=== PATIENT | male | born 1950 | race Caucasian/White ===

== ENCOUNTER 2020-12-25 23:48 | Inpatient (IN) | payer MEDICARE ==
[~2020-12-25] VITALS: Ht 185.4 cm; Wt 79.9 kg
[2020-12-25 23:45] VITALS: BP 87/56
[2020-12-26] VITALS (27 sets, daily range): BP systolic 79–114; BP diastolic 50–74
[2020-12-26] MEDS ORDERED: HEPARIN for IV BOLUS 10,000 UNIT/10 ML VIAL. IV PRN (00:15)
[2020-12-26] MEDS ORDERED: NOREPINEPHRINE VIAL 8 MG in IV DEXTROSE 5% 250 ML IV PRN (00:15)
[2020-12-26 00:56] LABS: BASO # 0.1 x10^3/uL (0.0-0.2); BASO % 0 % (0-3); EOS % 0 % (0-3); HEMATOCRIT 29.4 % (39.0-53.0); HEMOGLOBIN 9.2 g/dL (13.0-17.5); LYMPH # 2.1 x10^3/uL (1.0-4.8); LYMPH % 12 % (24-48); MEAN CORPUSCULAR HEMOGLOBIN 25 pg (25-35); MEAN CORPUSCULAR HGB CONC 31 g/dL (31-37); MEAN CORPUSCULAR VOLUME 80 fL (79-100); MONO # 1.9 x10^3/uL (0.0-1.1); MONO % 10 % (0-9); NEUT # 14.4 x10^3/uL (1.8-7.7); NEUT % 78 % (31-73); PLATELET COUNT 250 x10^3/uL (140-400); RED BLOOD COUNT 3.69 x10^6/uL (4.30-5.70); WHITE BLOOD COUNT 18.5 x10^3/uL (4.0-11.0)
--- NOTE | 2020-12-26 01:00 | NUR ---
Admit to room 116 from [facility]. Report received from GRAHAM Lehman. Patient arrived via EMS. Moved from cot to bed. Heparin infusing 2.2 mls/hr and levophed at 16mls/hr (1600mcg/250mls). Started at [place]. Heparin titrated with PTT. Continued dosages until current labs and will continue according to protocols. Dr. King notified of admit and orders recieved. Cardiology consult and Sepsis protocol. Patient alert and oriented and answers questions appropriately, however poor historian. VSS with occasional episodes of SVT that corrects itself. Chest pain described as pressure, 5/10 and no radiation. Fentanyl for pain. Will continue to monitor.
[2020-12-26 01:07] LABS: CALCIUM 7.4 mg/dL (8.5-10.1); CREATININE 1.9 mg/dL (0.7-1.3); MAGNESIUM 2.2 mg/dL (1.8-2.4); POTASSIUM 4.6 mmol/L (3.5-5.1)
[2020-12-26] MEDS ORDERED: ANTI-COAG MONITOR BY PHARMACY. MC PRN (01:15)
[2020-12-26 01:17] LABS: % BANDS 1 % (0-9); % LYMPHS 12 % (24-48); % MONOS 4 % (0-10); % SEGS 83 % (35-66); PLT ESTIMATE ADEQUATE (ADEQUATE)
[2020-12-26 01:18] LABS: ANISOCYTOSIS SLIGHT; HYPOCHROMIA SLIGHT
[2020-12-26] MEDS: IV NORMAL SALINE 1000ML BAG 1,000 ML IV SCH ×6 (01:26→23:54)
[2020-12-26] MEDS: fentaNYL PF VIAL 100 MCG/2 ML VIAL IVP PRN ×2 (01:50→16:36)
[2020-12-26] MEDS: HEPARIN for IV BOLUS 10,000 UNIT/10 ML VIAL. IV PRN ×3 (01:57→20:13)
--- NOTE | 2020-12-26 02:10 | EKG ---
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
[2020-12-26 02:58] LABS: BILIRUBIN,URINE NEGATIVE (NEG); CLARITY,URINE CLOUDY; COLOR,URINE AMBER; NITRITE,URINE NEGATIVE (NEG); PH,URINE 5.5 (<5.0-8.0); PROTEIN,URINE 30 mg/dL (NEG-TRACE)
[2020-12-26 03:05] LABS: RBC,URINE 20-40 /HPF (0-2); WBC,URINE 20-40 /HPF (0-4)
[2020-12-26 03:06] LABS: AMORPHOUS SEDIMENT,UR PRESENT /HPF; BACTERIA,URINE MODERATE /HPF (0-FEW); GRANULAR CASTS,URINE FEW /HPF; HYALINE CASTS, URINE OCCASIONAL /HPF
[2020-12-26] MEDS: HEPARIN 25,000UTS/250ML PREMIX 250 ML IV PRN (04:00)
[2020-12-26] MEDS ORDERED: ATOR20TA58 PO (07:50)
[2020-12-26] MEDS ORDERED: MEMA10TA PO (07:50)
[2020-12-26] MEDS ORDERED: FINA5TAB4 PO (07:50)
[2020-12-26] MEDS ORDERED: DONE10TA7 PO (07:50)
[2020-12-26] MEDS ORDERED: TRAZ-118 PO (07:50)
[2020-12-26] MEDS ORDERED: CEFU250T59 PO (07:50)
[2020-12-26] MEDS ORDERED: PANT40TA77 PO (07:50)
[2020-12-26] MEDS ORDERED: ASPI81TA59 PO (07:50)
--- NOTE | 2020-12-26 10:30 | PDOC2 ---
VIDAL JAIMES MILLER WOOD FLOUR 12/26/20 1030: CARDIAC CONSULT DATE OF CONSULT Date of Consult DATE: 12/26/20 TIME: 09:51 REASON FOR CONSULT Reason for Consult: Elevated troponin REFERRING PHYSICIAN Referring Physician: Christine SOURCE Source: Caregiver (daughter), Chart review, Patient HISTORY OF PRESENT ILLNESS HISTORY OF PRESENT ILLNESS This is a pleasant 70 yo male admitted for UTI and sepsis. Also with LE DVT with probable PE. Initially he was At. [facility] and was on holding and transferred to [facility] as there was no ICU beds available over there. He was at the [facility] home and was noted that his UTI wasnt getting any better. and then was noted with sepsis and JULY and noted that his chronic tinajero was clogged and had significant urinary retention. No known complains of chest pain nor SOA. He does have hx of CAD but no past intervention. No hx of VTA nor CVA but significant for alzheimers. His daughter in the room and provided me with details. He was noted with bilateral LE DVT and he is debilitated and WC bound. He is vaccinated for covid-19 and has not had the infection before. PAST MEDICAL HISTORY Cardiovascular: CAD, HTN, Hyperlipidemia Pulmonary: No pertinent hx CENTRAL NERVOUS SYSTEM: Dementia (alzheimers) GI: GERD Heme/Onc: No pertinent hx Hepatobiliary: No pertinent hx Musculoskeletal: Osteoarthritis Renal/: Acute renal failure, UTI, Benign prostatic enlarg. Dermatology: No pertinent hx PAST SURGICAL HISTORY Past Surgical History: Arthroscopy (right hip fracture repair, right foot surgery) FAMILY HISTORY Family History: Heart Disease SOCIAL HISTORY Smoke: No ALCOHOL: none Drugs: None Lives: Prison CURRENT MEDICATIONS CURRENT MEDICATIONS Current Medications Medications (Trade) Dose Ordered Sig/Waylon Route PRN Reason Start Time Stop Time Status Last Admin Dose Admin Norepinephrine Bitartrate 8 mg/ Dextrose 258 ml @ 13.41 mls/ hr CONT PRN IV PER PROTOCOL 12/26/20 00:15 12/26/20 01:18 Heparin Sodium/ Dextrose 250 ml @ 0 mls/hr CONT PRN IV PER PROTOCOL 12/26/20 00:15 12/26/20 04:00 Heparin Sodium (Porcine) (Heparin Sodium) 2,079 unit PRN Q6HRS PRN IV FOR UFH LEVEL LESS THAN 0.2 12/26/20 00:15 12/26/20 07:56 Info (Anti-Coagulation Monitoring By Pharmacy) 1 each PRN DAILY PRN MC PER PROTOCOL 12/26/20 01:15 12/26/20 01:14 Fentanyl Citrate (Fentanyl 2ml Vial) 50 mcg PRN Q2HR PRN IVP SEVERE PAIN 7-10 12/26/20 01:30 12/26/20 01:50 Sodium Chloride 1,000 ml @ 100 mls/hr Q10H IV 12/26/20 01:30 12/26/20 01:26 Sodium Chloride 1,000 ml @ 1,000 mls/hr Q1H IV 12/26/20 02:00 12/26/20 04:03 DC 12/26/20 02:21 ALLERGIES ALLERGIES: Coded Allergies: No Known Drug Allergies (Unverified , 12/26/20) ROS Review of System limited, poor historian with dementia PHYSICAL EXAM General: Alert, Cooperative, No acute distress HEENT: Atraumatic, Mucous membr. moist/pink Heart: Regular rate (SR) Abdomen: Soft, No tenderness Extremities: No cyanosis, Other (2+ bilateral LE pitting edema) Skin: No rashes Neuro: Normal speech, Sensation intact Psych/Mental Status: Mental status NL MUSCULOSKELETAL: Osteoarthritic changes both hands VITALS/I&O VITALS/I&O: Vital Signs Date Time Temp Pulse Resp B/P (MAP) Pulse Ox O2 Delivery O2 Flow Rate FiO2 12/26/20 08:14 Nasal Cannula 2.0 12/26/20 08:04 101 28 90/58 (69) 100 12/26/20 07:00 98.4 98.4 I & O 12/25/20 12/25/20 12/26/20 15:00 23:00 07:00 Intake Total 2578 ml Output Total 325 ml Balance 2253 ml LABS Lab: Laboratory Tests Test 12/26/20 00:50 12/26/20 02:30 12/26/20 05:45 White Blood Count 18.5 x10^3/uL (4.0-11.0) H Red Blood Count 3.69 x10^6/uL (4.30-5.70) L Hemoglobin 9.2 g/dL (13.0-17.5) L Hematocrit 29.4 % (39.0-53.0) L Mean Corpuscular Volume 80 fL (79-100) Mean Corpuscular Hemoglobin 25 pg (25-35) Mean Corpuscular Hemoglobin Concent 31 g/dL (31-37) Red Cell Distribution Width 15.0 % (11.5-14.5) H Platelet Count 250 x10^3/uL (140-400) Neutrophils (%) (Auto) 78 % (31-73) H Lymphocytes (%) (Auto) 12 % (24-48) L Monocytes (%) (Auto) 10 % (0-9) H Eosinophils (%) (Auto) 0 % (0-3) Basophils (%) (Auto) 0 % (0-3) Neutrophils # (Auto) 14.4 x10^3/uL (1.8-7.7) H Lymphocytes # (Auto) 2.1 x10^3/uL (1.0-4.8) Monocytes # (Auto) 1.9 x10^3/uL (0.0-1.1) H Eosinophils # (Auto) 0.0 x10^3/uL (0.0-0.7) Basophils # (Auto) 0.1 x10^3/uL (0.0-0.2) Segmented Neutrophils % 83 % (35-66) H Band Neutrophils % 1 % (0-9) Lymphocytes % 12 % (24-48) L Monocytes % 4 % (0-10) Platelet Estimate Adequate (ADEQUATE) Hypochromasia Slight Anisocytosis Slight Heparin Anti-Xa Act, Unfractionated < 0.10 IU/mL (0.30-0.70) L < 0.10 IU/mL (0.30-0.70) L Sodium Level 135 mmol/L (136-145) L Potassium Level 4.6 mmol/L (3.5-5.1) Chloride Level 105 mmol/L (98-107) Carbon Dioxide Level 16 mmol/L (21-32) L Anion Gap 14 (6-14) Blood Urea Nitrogen 56 mg/dL (8-26) H Creatinine 1.9 mg/dL (0.7-1.3) H Estimated GFR (Cockcroft-Gault) 35.0 Glucose Level 130 mg/dL (70-99) H Lactic Acid Level 5.1 mmol/L (0.4-2.0) *H 3.8 mmol/L (0.4-2.0) H Calcium Level 7.4 mg/dL (8.5-10.1) L Magnesium Level 2.2 mg/dL (1.8-2.4) Troponin I Quantitative 0.662 ng/mL (0.000-0.055) Urine Collection Type U cath Urine Color Lorna Urine Clarity Cloudy Urine pH 5.5 (<5.0-8.0) Urine Specific [place] 1.020 (1.000-1.030) Urine Protein 30 mg/dL (NEG-TRACE) Urine Glucose (UA) Negative mg/dL (NEG) Urine Ketones (Stick) Negative mg/dL (NEG) Urine Blood Large (NEG) Urine Nitrite Negative (NEG) Urine Bilirubin Negative (NEG) Urine Urobilinogen Dipstick 1.0 mg/dL (0.2 mg/dL) Urine Leukocyte Esterase Moderate (NEG) Urine RBC 20-40 /HPF (0-2) Urine WBC 20-40 /HPF (0-4) Urine Squamous Epithelial Cells Few /LPF Urine Amorphous Sediment Present /HPF Urine Bacteria Moderate /HPF (0-FEW) Urine Hyaline Casts Occasional /HPF Urine Granular Casts Few /HPF Urine Mucus Marked /LPF Laboratory Tests 12/26/20 00:50 Laboratory Tests 12/26/20 00:50 ASSESSMENT/PLAN ASSESSMENT/PLAN 1. UTI with chronic tinajero use 2. Obstructive uropathy: significant retention initially as tinajero was noted clogged 3. JULY: likely from significant urinary retention. per PCP 4. Bilateral LE DVT 5. Probable PE: unable to confirm with CT due to JULY. TTE revealed severe RV dilation, moderate decreased with diffuse hypokinesis and apical sparing. mild MR/TR. RVSP at 55-60 mmHg. EF 60-65% and LV systolic function nml 6. Hx of CAD with prior intervention 7. Sepsis/shock 8. Lactic acidosis 9. Alzheimers dementia/debility: WC bound 10. NSTEMI: Trop at 0.6, with culprits above, likely RV ischemia with highly suspected PE. No CP/SOA 11. Severe transaminitis Recommendations 1. Continue heparin drip. Consult pulmonary 2. Will obtain CXR, LE doppler report from [place] 3. Hold BP meds. Antibiotic therapy per ID. Consult ID. Continue with levophed 4. Pending goals of care outpt ischemic workup would be considered. ASA 5. Trop, FLP, INR 6. Consult GI KO GARCIA MD 12/26/201936: CARDIAC CONSULT ASSESSMENT/PLAN ASSESSMENT/PLAN Patient seen and examined. Agree with TACK PULLER's assessment and plan. Slight trop elevation prob secondary to RV strain/demand ischemia 2D echo showed EF 60-65% Continue hep gtt for DVT and possible PE Continue IV Abx for sepsis Thank you for your consultation VIDAL JAIMES APRN Dec 26, 2020 10:30 KO GARCIA MD Dec 26, 2020 19:37
[2020-12-26 11:10] LABS: HEMATOCRIT 27.6 % (39.0-53.0); HEMOGLOBIN 8.8 g/dL (13.0-17.5); RED BLOOD COUNT 3.51 x10^6/uL (4.30-5.70); WHITE BLOOD COUNT 19.2 x10^3/uL (4.0-11.0)
[2020-12-26 11:25] LABS: ALBUMIN/GLOBULIN RATIO 0.5 (1.0-1.7); CALCIUM 7.4 mg/dL (8.5-10.1); CREATININE 1.6 mg/dL (0.7-1.3); GFR 42.7; POTASSIUM 4.9 mmol/L (3.5-5.1); TOTAL BILIRUBIN 0.8 mg/dL (0.2-1.0); TOTAL PROTEIN 5.8 g/dL (6.4-8.2)
[2020-12-26] MEDS ORDERED: PIP/TAZO PER PHARMACY MC PRN (12:00)
[2020-12-26 12:01] LABS: CHOLESTEROL/HDL RATIO 2.2
--- NOTE | 2020-12-26 12:36 | CONS ---
DATE OF CONSULTATION: 12/26/2020 PULMONARY CONSULTATION ATTENDING PHYSICIAN: Dr. King. REASON FOR CONSULTATION: Pulmonary embolism and DVT. HISTORY OF PRESENT ILLNESS: The patient is a 70-year-old male who has no significant tobacco history. The patient has history of severe back injury and is wheelchair bound. He has history of chronic Forde catheter and has recurrent urinary tract infections. The patient was seen in the emergency room at [facility]. He was noted to have septic shock from urinary tract infection. Also, developed JULY related to sepsis. He underwent venous Dopplers and was found to have a DVT in his lower extremities. I have not seen the report yet. The patient also reportedly had an echocardiogram, which showed RV dysfunction. As there was no availability of ICU beds, he was transferred to our facility. Currently, he is on Levophed. He has systolic blood pressure in the 90s. He is in no obvious respiratory distress. He is on nasal cannula at 2 liters and 100% FiO2. The daughter is at the bedside, who gave much of the history. The patient did complain of chest pain. The daughter also said that recently has been weak and has been lethargic due to recurrent urinary tract infection. PAST MEDICAL HISTORY: History of CAD, history of hypertension, hyperlipidemia, history of recurrent urinary tract infections, history of Alzheimer's, history of GERD, history of BPH and renal dysfunction. PAST SURGICAL HISTORY: Right hip fracture repair, right foot surgery. FAMILY HISTORY: Heart disease. SOCIAL HISTORY: Nonsmoker, nonalcoholic. ALLERGIES: None. MEDICATIONS: Reviewed as listed in the MRAD including heparin per protocol for PE. REVIEW OF SYSTEMS: A 10-point system obtained. Pertinent positives and negatives discussed in my presence illness, otherwise noncontributory. All systems that were negative were reviewed as well. PHYSICAL EXAMINATION: VITAL SIGNS: Reviewed. Afebrile, blood pressure in the 90s systolic. Pulse ox is 100% on 2 liters. NECK: Supple. LUNGS: With diminished breath sounds. CARDIOVASCULAR: With a regular rate. ABDOMEN: Soft, nontender. EXTREMITIES: With bilateral pitting edema. LABORATORY DATA: Reviewed. Sodium 135, potassium 4.6, BUN 56, creatinine 1.9. Lactic acid 5.1. Troponin 0.6. White cell count 19.2, hemoglobin is 8.8 and platelets are 229. IMPRESSION: 1. Acute hypoxic respiratory failure secondary to septic shock and suspected acute pulmonary embolism. 2. Shock. Likely contributed by sepsis. The patient has chronic Forde catheter and has a history of recurrent urinary tract infection. Another contributing factor could be pulmonary embolism but clinically thought to be less likely. 3. Bilateral lower extremity deep vein thrombosis. Echo reported as RV dilatation. Likely has pulmonary embolism as well. Risk factors being a mobilization. 4. Chronic Forde catheter and recurrent urinary tract infections, now with severe urinary tract infection and sepsis. 5. Acute kidney injury related to sepsis. 6. No significant tobacco history. 7. Leukocytosis secondary to urinary tract infection. 8. Lactic acidosis secondary to sepsis. 9. Mildly increased troponin, likely secondary to RV dysfunction from pulmonary embolism. RECOMMENDATIONS: 1. I have discussed with the patient's daughter at the bedside. At present, the patient is only on 2 liters nasal cannula. He is not in any obvious respiratory distress. He is not the most optimal candidate for TPA. At this time, his hypotension is likely contributed by urosepsis rather than pulmonary embolism. will continue with heparin. 2. Continue to monitor his blood pressure closely. 3. Continue low dose Levophed. 4. IV fluids per protocol for sepsis. 5. Monitor renal function. 6. Once off the pressor, we will do a V/Q scan. Cannot do CTA chest unless JULY resolve. 7. The patient will require a minimum of 6 months of anticoagulation, probably lifelong since he is wheelchair bound and will always at future risk for thromboembolic disease. 8. Monitor white cell count. 9. Initiate broad spectrum antibiotic, Zosyn. 9. Infectious Disease consult and recommendations 10. Discussed with both the daughters RN and RT and Dr Marine Chaparro. Chart reviewed. Imaging studies reviewed. Discussed with Cardiology, DIE TROUBLE SHOOTER. Critical care time 40 minutes. CAPRI ERWIN: Lucia TID: [id number] MTDD
--- NOTE | 2020-12-26 12:55 | CONS ---
DATE OF CONSULTATION: 12/26/2020 REFERRING PHYSICIAN: Karma Quan APRN REASON FOR CONSULTATION: Sepsis. HISTORY OF PRESENT ILLNESS: A 70-year-old male, a group home resident, was transferred from [facility] for treatment of PE. The patient presented there with a urinary tract infection, which was treated at the group home, not getting better. He was found to have JULY. Forde was clogged. The patient had leukocytosis and lactic acidosis along with JULY. The patient was noted to have bilateral lower extremity DVT. He is basically debilitated and wheelchair bound since 2019 with a history of right hip fracture, after which he did not get back to his normal ambulatory state. Daughters are at bedside. The patient had received IV vancomycin and ceftriaxone at the outside facility. The patient is started on Zosyn. ID consultation has been requested for antibiotic management. The patient's white count was 19,000 this morning, creatinine of 1.6. Troponin was elevated. LFTs are elevated. REVIEW OF SYSTEMS: Unable to obtain. PAST MEDICAL HISTORY: Coronary artery disease, hypertension, hyperlipidemia, GERD, Alzheimer's, osteoarthritis, recurrent urinary tract infection, BPH. PAST SURGICAL HISTORY: Right hip fracture with repair, right foot surgery. FAMILY HISTORY: As per HPI. SOCIAL HISTORY: Nonsmoker, no alcohol,currently at the group home. CURRENT MEDICATIONS: Zosyn. Other medications reviewed in medication list. The patient had been on vancomycin and ceftriaxone prior to transfer from [place]. ALLERGIES: No known drug allergies. PHYSICAL EXAMINATION: VITAL SIGNS: Temperature 98.4, pulse 101, respiratory rate 28, blood pressure 90/58, oxygen saturation 100% on 2 liters, O2 by nasal cannula. GENERAL: Sleepy, arousable, appears comfortable, does not answer most of the questions. HEENT: Atraumatic, normocephalic. Mucous membranes moist, pink. NECK: Supple. Right IJ in place. Right IJ clean. HEART: S1, S2. No murmurs. ABDOMEN: Soft, nontender, nondistended. GENITOURINARY: Forde in place. EXTREMITIES: Pedal edema, no cyanosis. DERMATOLOGIC: Warm, dry, no generalized rash. NEUROLOGIC: Sleepy, arousable, confusion, which is baseline. PSYCHIATRIC: Calm and cooperative. MUSCULOSKELETAL: Changes suggestive of DJD. LABORATORY DATA: WBC 19.2, hemoglobin 8.8, hematocrit 27.6, platelets 229. Sodium 138, potassium 4.9, chloride 108, bicarbonate 17, BUN 56, creatinine 1.6, glucose 120, lactate 3.8, AST 3133, ALT 2456, alk phos 171. Troponin 0.535, albumin 2.0. UA shows large blood, moderate leukocyte esterase. IMAGING: None here. MICRO: None available. IMPRESSION: 1. Sepsis. 2. Urinary tract infection with chronic indwelling Forde.Forde changed 3. Urinary retention. 4. Leukocytosis and lactic acidosis. 5. Left lower extremity deep venous thrombosis with pulmonary embolism. 6. Acute kidney injury. 7. Alzheimer's advanced. 8. Non-ST elevation myocardial infarction. 9. Abnormal LFTs.likely shock liver 10. Coronary artery disease. 11. Generalized debility. 12. Hematuria. 13. History of recurrent UTIs RECOMMENDATIONS: 1. Continue Zosyn. 2. Start Zyvox. 3. Follow up on urine cultures and blood cultures here and from [facility]. awaiting micro results from [facility] for my review. 4. Follow up labs. 5. Maintain aspiration precaution. 6. Continue supportive care. 7. Obtain CT abdomen and pelvis without. CCT: 35 minutes. Thank you for allowing me to participate in this patient's care. If you have any questions, do not hesitate to contact me. Discussed with daughters at bedside. Discussed with RN. Discussed with Dr. Almodovar. EITAN/JAMIE ERWIN: EITAN/tee TID: [id number] MTDD
[2020-12-26 13:31] LABS: PROTHROMBIN TIME PATIENT 21.2 SEC (11.7-14.0)
--- NOTE | 2020-12-26 13:53 | NUR ---
SS following for discharge planning. SS reviewed pt chart and discussed with pt RN. Pt is [facility] resident from [facility], ; fax [phone]. Pt is currently requiring oxygen at two liters nasal canula. Pt on IV Zyvox and IV Zosyn. Pt on Heparin. Cardiology, ID, and Pulmonology consulted. SS will continue to follow for discharge planning.
[2020-12-26] MEDS: ASPIRIN ENTERIC COATED 81 MG TABLET.DR. PO SCH (14:08)
[2020-12-26] MEDS: PIPERACILLIN/TAZOBACTAM 2.25 GM in IV NORMAL SALINE 50ML 50 ML IV SCH ×3 (14:09→23:53)
--- NOTE | 2020-12-26 14:17 | PDOC2 ---
GI CONSULT Date of Service: DATE: 12/26/20 TIME: 14:02 Reason For Consult: transaminitis HPI: HPI: Pleasant 70 y/o male transferred from w/ UTI/sepsis (chronic Forde, was clogged), JULY, LE DVT, and probable DVT. Hypotensive on pressor support. We are asked to see for transaminitis. H/o GERD controlled w/ a medication. No dysphagia, n/v, diarrhea, constipation, hematochezia, or melena. Some decreased appetite lately and has some pelvic discomfort currently. Chart mentions weight loss. No previous EGD. Family reports colonoscopy in [place] probably before passed in 2008 - reportedly normal. No GB, liver, pancreas, or PUD history. On ASA. PMH: PMH: CAD, HTN, HLD, dementia, GERD, OA, JULY, UTI, BPH right hip and foot surgeries FH: Family History: No pertinent hx Social History: Smoke: No ALCOHOL: none Drugs: None ROS: GEN: Denies fevers, chills, sweats HEENT: Denies blurred vision, sore throat CV: Denies chest pain RESP: +SOA GI: Per HPI : per HPI ENDO: Denies weight changes NEURO: Denies confusion, dizziness MSK: +weakness SKIN: Denies jaundice, pruritus Vitals: Vitals: Vital Signs Date Time Temp Pulse Resp B/P (MAP) Pulse Ox O2 Delivery O2 Flow Rate FiO2 12/26/20 12:27 Nasal Cannula 2.0 12/26/20 08:04 101 28 90/58 (69) 100 12/26/20 07:00 98.4 98.4 Labs: Labs: Laboratory Tests Test 12/26/20 00:50 12/26/20 02:30 12/26/20 05:45 12/26/20 10:00 White Blood Count 18.5 x10^3/uL (4.0-11.0) 19.2 x10^3/uL (4.0-11.0) Red Blood Count 3.69 x10^6/uL (4.30-5.70) 3.51 x10^6/uL (4.30-5.70) Hemoglobin 9.2 g/dL (13.0-17.5) 8.8 g/dL (13.0-17.5) Hematocrit 29.4 % (39.0-53.0) 27.6 % (39.0-53.0) Mean Corpuscular Volume 80 fL (79-100) 79 fL (79-100) Mean Corpuscular Hemoglobin 25 pg (25-35) 25 pg (25-35) Mean Corpuscular Hemoglobin Concent 31 g/dL (31-37) 32 g/dL (31-37) Red Cell Distribution Width 15.0 % (11.5-14.5) 15.0 % (11.5-14.5) Platelet Count 250 x10^3/uL (140-400) 229 x10^3/uL (140-400) Neutrophils (%) (Auto) 78 % (31-73) Lymphocytes (%) (Auto) 12 % (24-48) Monocytes (%) (Auto) 10 % (0-9) Eosinophils (%) (Auto) 0 % (0-3) Basophils (%) (Auto) 0 % (0-3) Neutrophils # (Auto) 14.4 x10^3/uL (1.8-7.7) Lymphocytes # (Auto) 2.1 x10^3/uL (1.0-4.8) Monocytes # (Auto) 1.9 x10^3/uL (0.0-1.1) Eosinophils # (Auto) 0.0 x10^3/uL (0.0-0.7) Basophils # (Auto) 0.1 x10^3/uL (0.0-0.2) Segmented Neutrophils % 83 % (35-66) Band Neutrophils % 1 % (0-9) Lymphocytes % 12 % (24-48) Monocytes % 4 % (0-10) Platelet Estimate Adequate (ADEQUATE) Hypochromasia Slight Anisocytosis Slight Heparin Anti-Xa Act, Unfractionated < 0.10 IU/mL (0.30-0.70) < 0.10 IU/mL (0.30-0.70) Sodium Level 135 mmol/L (136-145) 138 mmol/L (136-145) Potassium Level 4.6 mmol/L (3.5-5.1) 4.9 mmol/L (3.5-5.1) Chloride Level 105 mmol/L (98-107) 108 mmol/L (98-107) Carbon Dioxide Level 16 mmol/L (21-32) 17 mmol/L (21-32) Anion Gap 14 (6-14) 13 (6-14) Blood Urea Nitrogen 56 mg/dL (8-26) 56 mg/dL (8-26) Creatinine 1.9 mg/dL (0.7-1.3) 1.6 mg/dL (0.7-1.3) Estimated GFR (Cockcroft-Gault) 35.0 42.7 Glucose Level 130 mg/dL (70-99) 120 mg/dL (70-99) Lactic Acid Level 5.1 mmol/L (0.4-2.0) 3.8 mmol/L (0.4-2.0) Calcium Level 7.4 mg/dL (8.5-10.1) 7.4 mg/dL (8.5-10.1) Magnesium Level 2.2 mg/dL (1.8-2.4) 2.2 mg/dL (1.8-2.4) Troponin I Quantitative 0.662 ng/mL (0.000-0.055) 0.535 ng/mL (0.000-0.055) Urine Collection Type U cath Urine Color Lorna Urine Clarity Cloudy Urine pH 5.5 (<5.0-8.0) Urine Specific [place] 1.020 (1.000-1.030) Urine Protein 30 mg/dL (NEG-TRACE) Urine Glucose (UA) Negative mg/dL (NEG) Urine Ketones (Stick) Negative mg/dL (NEG) Urine Blood Large (NEG) Urine Nitrite Negative (NEG) Urine Bilirubin Negative (NEG) Urine Urobilinogen Dipstick 1.0 mg/dL (0.2 mg/dL) Urine Leukocyte Esterase Moderate (NEG) Urine RBC 20-40 /HPF (0-2) Urine WBC 20-40 /HPF (0-4) Urine Squamous Epithelial Cells Few /LPF Urine Amorphous Sediment Present /HPF Urine Bacteria Moderate /HPF (0-FEW) Urine Hyaline Casts Occasional /HPF Urine Granular Casts Few /HPF Urine Mucus Marked /LPF BUN/Creatinine Ratio 35 (6-20) Total Bilirubin 0.8 mg/dL (0.2-1.0) Aspartate Amino Transf (AST/SGOT) 3133 U/L (15-37) Alanine Aminotransferase (ALT/SGPT) 2456 U/L (16-63) Alkaline Phosphatase 171 U/L (46-116) Total Protein 5.8 g/dL (6.4-8.2) Albumin 2.0 g/dL (3.4-5.0) Albumin/Globulin Ratio 0.5 (1.0-1.7) Triglycerides Level 47 mg/dL (0-150) Cholesterol Level 65 mg/dL (0-200) LDL Cholesterol, Calculated 27 mg/dL (0-100) VLDL Cholesterol, Calculated 9 mg/dL (0-40) Non-HDL Cholesterol Calculated 36 mg/dL (0-129) HDL Cholesterol 29 mg/dL (40-60) Cholesterol/HDL Ratio 2.2 Test 12/26/20 12:50 Prothrombin Time 21.2 SEC (11.7-14.0) Prothromb Time International Ratio 1.9 (0.8-1.1) Heparin Anti-Xa Act, Unfractionated < 0.10 IU/mL (0.30-0.70) Allergies: Coded Allergies: No Known Drug Allergies (Unverified , 12/26/20) Medications: Current Medications Medications (Trade) Dose Ordered Sig/Waylon Route PRN Reason Start Time Stop Time Status Last Admin Dose Admin Norepinephrine Bitartrate 8 mg/ Dextrose 258 ml @ 13.41 mls/ hr CONT PRN IV PER PROTOCOL 12/26/20 00:15 12/26/20 01:18 Heparin Sodium/ Dextrose 250 ml @ 0 mls/hr CONT PRN IV PER PROTOCOL 12/26/20 00:15 12/26/20 04:00 Heparin Sodium (Porcine) (Heparin Sodium) 2,079 unit PRN Q6HRS PRN IV FOR UFH LEVEL LESS THAN 0.2 12/26/20 00:15 12/26/20 07:56 Info (Anti-Coagulation Monitoring By Pharmacy) 1 each PRN DAILY PRN MC PER PROTOCOL 12/26/20 01:15 12/26/20 01:14 Fentanyl Citrate (Fentanyl 2ml Vial) 50 mcg PRN Q2HR PRN IVP SEVERE PAIN 7-10 12/26/20 01:30 12/26/20 01:50 Sodium Chloride 1,000 ml @ 100 mls/hr Q10H IV 12/26/20 01:30 12/26/20 11:10 Sodium Chloride 1,000 ml @ 1,000 mls/hr Q1H IV 12/26/20 02:00 12/26/20 04:03 DC 12/26/20 02:21 Imaging: Imaging: - PE: GEN: chronically ill in appearance HEENT: Atraumatic, PERRL, poor dentition LUNGS: bti tachypneic, diminished anteriorly HEART: tachycardic ABD: suprapubic discomfort, quiet BS, soft EXTREMITY: No edema SKIN: No rashes, no jaundice NEURO/PSYCH: A & O 3, maybe a bit forgetful - son and [id number] present to supplement history A/P: A/P: UTI/septic shock NSTEMI, leukocytosis, lactic acidosis, JULY DVT, probable PE Anemia, transaminitis GERD - controlled w/ PPI CRC screen - reportedly normal >10 years ago H/o CAD on ASA, Alzheimer's dementia -- Likely shock liver w/ sepsis/hypotension - treat this, follow labs, check RUQ US. Give acid-civil cad designer, check anemia parameters. YNES RICE Dec 26, 2020 14:17
--- NOTE | 2020-12-26 14:22 | PDOC1 ---
History and Physical Date of Service: DOS: DATE: 12/26/20 TIME: 13:49 Chief Complaint: Chief Complain: transferred to [facility] for DVT/PE History of Present Illness: HPI: Patient is a 70-year-old male with past medical history of chronic indwelling Forde catheter placed due to BPH, dyslipidemia, GERD, Alzheimer's dementia, obstructive uropathy who was transferred from [facility] due to hypotension, UTI , and bilateral DVT/PE. Patient actually presented to the ED at [facility] for back pain. He is unsure how long he has had the back pain but he does come from a nursing facility and was found to have increased WBC and elevated creatinine. Daughter is present in the room said the patient is fully was clogged and also had dark urine. Patient is originally from [place] and he had the Forde placed in July of this year from possibly related to his prostate. Patient was started on IV antibiotics and heparin drip and patient was transferred over to [facility] because [facility] did not have any ICU bed availability. Currently patient denies any fevers, chest pain, shortness of breath, abdominal pain, diarrhea or burning upon urination. Past Medical/Surgical History: PMH/PSH: Past medical history of Alzheimer's dementia, BPH, ME, CAD, dyslipidemia, GERD, insomnia, obstructive uropathy Allergies: Allergies: Coded Allergies: No Known Drug Allergies (Unverified , 12/26/20) Family History: Family History: Reviewed with no relevant findings Social History: Social History: Denies any alcohol, tobacco or drug abuse Current Medications: Current Medications Current Medications Norepinephrine Bitartrate 8 mg/ Dextrose 258 ml @ 13.41 mls/ hr CONT PRN IV PER PROTOCOL Last administered on 12/26/20at 01:18; Start 12/26/20 at 00:15 Heparin Sodium/ Dextrose 250 ml @ 0 mls/hr CONT PRN IV PER PROTOCOL Last administered on 12/26/20at 04:00; Start 12/26/20 at 00:15 Heparin Sodium (Porcine) (Heparin Sodium) 2,079 unit PRN Q6HRS PRN IV FOR UFH LEVEL LESS THAN 0.2 Last administered on 12/26/20at 07:56; Start 12/26/20 at 00:15 Heparin Sodium (Porcine) (Heparin Sodium) 1,050 unit PRN Q6HRS PRN IV FOR UFH LEVEL 0.2 - 0.29; Start 12/26/20 at 00:15 Info (Anti-Coagulation Monitoring By Pharmacy) 1 each PRN DAILY PRN MC PER PROTOCOL Last administered on 12/26/20at 01:14; Start 12/26/20 at 01:15 Fentanyl Citrate (Fentanyl 2ml Vial) 50 mcg PRN Q2HR PRN IVP SEVERE PAIN 7-10 Last administered on 12/26/20at 01:50; Start 12/26/20 at 01:30 Sodium Chloride 1,000 ml @ 100 mls/hr Q10H IV Last administered on 12/26/20at 11:10; Start 12/26/20 at 01:30 Sodium Chloride 1,000 ml @ 1,000 mls/hr Q1H IV Last administered on 12/26/20at 02:21; Start 12/26/20 at 02:00; Stop 12/26/20 at 04:03; Status DC Aspirin (Ecotrin) 81 mg DAILYWBKFT PO ; Start 12/26/20 at 11:00 Atorvastatin Calcium (Lipitor) 20 mg QHS PO ; Start 12/26/20 at 21:00; Stop 12/26/20 at 13:00; Status DC Piperacillin Sod/ Tazobactam Sod (Zosyn Per Pharmacy) 1 each PRN DAILY PRN MC SEE COMMENTS; Start 12/26/20 at 12:00 Piperacillin Sod/ Tazobactam Sod 2.25 gm/Sodium Chloride 50 ml @ 100 mls/hr Q6HRS IV ; Start 12/26/20 at 12:00 Linezolid/Dextrose 300 ml @ 300 mls/hr Q12HR IV ; Start 12/26/20 at 13:00 Active Scripts Active Reported Namenda (Memantine Hcl) 10 Mg Tablet 10 Mg PO DAILY Trazodone Hcl 50 Mg Tablet 1 Tab PO QHS Pantoprazole Sodium (Pantoprazole Sodium) 40 Mg Tablet.dr 40 Mg PO DAILYAC Cefuroxime (Cefuroxime Axetil) 250 Mg Tablet 250 Mg PO BID Finasteride 5 Mg Tablet 5 Mg PO DAILY Donepezil Hcl 10 Mg Tablet 1 Tab PO HS Atorvastatin Calcium 20 Mg Tablet 1 Tab PO DAILY Children's Aspirin (Aspirin) 81 Mg Tab.chew 1 Tab PO DAILY 30 Days ROS: Review of Systems Review of System REVIEW OF SYSTEMS: GENERAL: Denies weakness SKIN: No bruising, hair changes or rashes. EYES: No blurred, double or loss of vision. NOSE AND THROAT: No history of nosebleeds, hoarseness or sore throat. HEART: No history of palpitations, chest pain or shortness of breath on exertion. LUNGS: Denies cough, hemoptysis, wheezing or shortness of breath. GASTROINTESTINAL: Denies changes in appetite, nausea, vomiting, diarrhea or constipation. GENITOURINARY: No history of frequency, urgency, hesitancy or nocturia. NEUROLOGIC: Denies history of numbness, tingling, or tremor. PSYCHIATRIC: No history of panic, anxiety or depression. ENDOCRINE: No history of heat or cold intolerance, polyuria or polydipsia. EXTREMITIES: Denies joint pain, pain on walking or stiffness. Physical Exam: Vital Signs: Vital Signs Date Time Temp Pulse Resp B/P (MAP) Pulse Ox O2 Delivery O2 Flow Rate FiO2 12/26/20 12:27 Nasal Cannula 2.0 12/26/20 08:04 101 28 90/58 (69) 100 12/26/20 07:00 98.4 98.4 Physcial Exam: General: Well developed, well nourished, no acute distress, well appearing. Forde catheter appearing with dark urine. HEENT: Pupils equally round and reactive to light, EOMI, no discharge, normal conjunctiva Neck: Supple, no nuchal rigidity, no JVD, trachea midline, no tenderness Cardiac: RRR, no murmurs, no gallops, no rubs Chest/Lungs: CTAB, no wheeze, no rhonchi, no crackles Abdomen: soft, non-distended, no guarding, no peritoneal signs, non-tender Back: No tenderness Extremities: no edema, pulses intact, non-tender,capillary refill <3 sec bilateral upper and lower extremities, Neuro: Alert and oriented x 3, no focal deficits, normal speech Labs: Labs: Laboratory Tests Test 12/26/20 00:50 12/26/20 02:30 12/26/20 05:45 12/26/20 10:00 White Blood Count 18.5 x10^3/uL (4.0-11.0) 19.2 x10^3/uL (4.0-11.0) Red Blood Count 3.69 x10^6/uL (4.30-5.70) 3.51 x10^6/uL (4.30-5.70) Hemoglobin 9.2 g/dL (13.0-17.5) 8.8 g/dL (13.0-17.5) Hematocrit 29.4 % (39.0-53.0) 27.6 % (39.0-53.0) Mean Corpuscular Volume 80 fL (79-100) 79 fL (79-100) Mean Corpuscular Hemoglobin 25 pg (25-35) 25 pg (25-35) Mean Corpuscular Hemoglobin Concent 31 g/dL (31-37) 32 g/dL (31-37) Red Cell Distribution Width 15.0 % (11.5-14.5) 15.0 % (11.5-14.5) Platelet Count 250 x10^3/uL (140-400) 229 x10^3/uL (140-400) Neutrophils (%) (Auto) 78 % (31-73) Lymphocytes (%) (Auto) 12 % (24-48) Monocytes (%) (Auto) 10 % (0-9) Eosinophils (%) (Auto) 0 % (0-3) Basophils (%) (Auto) 0 % (0-3) Neutrophils # (Auto) 14.4 x10^3/uL (1.8-7.7) Lymphocytes # (Auto) 2.1 x10^3/uL (1.0-4.8) Monocytes # (Auto) 1.9 x10^3/uL (0.0-1.1) Eosinophils # (Auto) 0.0 x10^3/uL (0.0-0.7) Basophils # (Auto) 0.1 x10^3/uL (0.0-0.2) Segmented Neutrophils % 83 % (35-66) Band Neutrophils % 1 % (0-9) Lymphocytes % 12 % (24-48) Monocytes % 4 % (0-10) Platelet Estimate Adequate (ADEQUATE) Hypochromasia Slight Anisocytosis Slight Heparin Anti-Xa Act, Unfractionated < 0.10 IU/mL (0.30-0.70) < 0.10 IU/mL (0.30-0.70) Sodium Level 135 mmol/L (136-145) 138 mmol/L (136-145) Potassium Level 4.6 mmol/L (3.5-5.1) 4.9 mmol/L (3.5-5.1) Chloride Level 105 mmol/L (98-107) 108 mmol/L (98-107) Carbon Dioxide Level 16 mmol/L (21-32) 17 mmol/L (21-32) Anion Gap 14 (6-14) 13 (6-14) Blood Urea Nitrogen 56 mg/dL (8-26) 56 mg/dL (8-26) Creatinine 1.9 mg/dL (0.7-1.3) 1.6 mg/dL (0.7-1.3) Estimated GFR (Cockcroft-Gault) 35.0 42.7 Glucose Level 130 mg/dL (70-99) 120 mg/dL (70-99) Lactic Acid Level 5.1 mmol/L (0.4-2.0) 3.8 mmol/L (0.4-2.0) Calcium Level 7.4 mg/dL (8.5-10.1) 7.4 mg/dL (8.5-10.1) Magnesium Level 2.2 mg/dL (1.8-2.4) 2.2 mg/dL (1.8-2.4) Troponin I Quantitative 0.662 ng/mL (0.000-0.055) 0.535 ng/mL (0.000-0.055) Urine Collection Type U cath Urine Color Lorna Urine Clarity Cloudy Urine pH 5.5 (<5.0-8.0) Urine Specific [place] 1.020 (1.000-1.030) Urine Protein 30 mg/dL (NEG-TRACE) Urine Glucose (UA) Negative mg/dL (NEG) Urine Ketones (Stick) Negative mg/dL (NEG) Urine Blood Large (NEG) Urine Nitrite Negative (NEG) Urine Bilirubin Negative (NEG) Urine Urobilinogen Dipstick 1.0 mg/dL (0.2 mg/dL) Urine Leukocyte Esterase Moderate (NEG) Urine RBC 20-40 /HPF (0-2) Urine WBC 20-40 /HPF (0-4) Urine Squamous Epithelial Cells Few /LPF Urine Amorphous Sediment Present /HPF Urine Bacteria Moderate /HPF (0-FEW) Urine Hyaline Casts Occasional /HPF Urine Granular Casts Few /HPF Urine Mucus Marked /LPF BUN/Creatinine Ratio 35 (6-20) Total Bilirubin 0.8 mg/dL (0.2-1.0) Aspartate Amino Transf (AST/SGOT) 3133 U/L (15-37) Alanine Aminotransferase (ALT/SGPT) 2456 U/L (16-63) Alkaline Phosphatase 171 U/L (46-116) Total Protein 5.8 g/dL (6.4-8.2) Albumin 2.0 g/dL (3.4-5.0) Albumin/Globulin Ratio 0.5 (1.0-1.7) Triglycerides Level 47 mg/dL (0-150) Cholesterol Level 65 mg/dL (0-200) LDL Cholesterol, Calculated 27 mg/dL (0-100) VLDL Cholesterol, Calculated 9 mg/dL (0-40) Non-HDL Cholesterol Calculated 36 mg/dL (0-129) HDL Cholesterol 29 mg/dL (40-60) Cholesterol/HDL Ratio 2.2 Test 12/26/20 12:50 Prothrombin Time 21.2 SEC (11.7-14.0) Prothromb Time International Ratio 1.9 (0.8-1.1) Heparin Anti-Xa Act, Unfractionated < 0.10 IU/mL (0.30-0.70) Laboratory Tests Test 12/26/20 00:50 12/26/20 02:30 12/26/20 05:45 12/26/20 10:00 White Blood Count 18.5 x10^3/uL (4.0-11.0) 19.2 x10^3/uL (4.0-11.0) Red Blood Count 3.69 x10^6/uL (4.30-5.70) 3.51 x10^6/uL (4.30-5.70) Hemoglobin 9.2 g/dL (13.0-17.5) 8.8 g/dL (13.0-17.5) Hematocrit 29.4 % (39.0-53.0) 27.6 % (39.0-53.0) Mean Corpuscular Volume 80 fL (79-100) 79 fL (79-100) Mean Corpuscular Hemoglobin 25 pg (25-35) 25 pg (25-35) Mean Corpuscular Hemoglobin Concent 31 g/dL (31-37) 32 g/dL (31-37) Red Cell Distribution Width 15.0 % (11.5-14.5) 15.0 % (11.5-14.5) Platelet Count 250 x10^3/uL (140-400) 229 x10^3/uL (140-400) Neutrophils (%) (Auto) 78 % (31-73) Lymphocytes (%) (Auto) 12 % (24-48) Monocytes (%) (Auto) 10 % (0-9) Eosinophils (%) (Auto) 0 % (0-3) Basophils (%) (Auto) 0 % (0-3) Neutrophils # (Auto) 14.4 x10^3/uL (1.8-7.7) Lymphocytes # (Auto) 2.1 x10^3/uL (1.0-4.8) Monocytes # (Auto) 1.9 x10^3/uL (0.0-1.1) Eosinophils # (Auto) 0.0 x10^3/uL (0.0-0.7) Basophils # (Auto) 0.1 x10^3/uL (0.0-0.2) Segmented Neutrophils % 83 % (35-66) Band Neutrophils % 1 % (0-9) Lymphocytes % 12 % (24-48) Monocytes % 4 % (0-10) Platelet Estimate Adequate (ADEQUATE) Hypochromasia Slight Anisocytosis Slight Heparin Anti-Xa Act, Unfractionated < 0.10 IU/mL (0.30-0.70) < 0.10 IU/mL (0.30-0.70) Sodium Level 135 mmol/L (136-145) 138 mmol/L (136-145) Potassium Level 4.6 mmol/L (3.5-5.1) 4.9 mmol/L (3.5-5.1) Chloride Level 105 mmol/L (98-107) 108 mmol/L (98-107) Carbon Dioxide Level 16 mmol/L (21-32) 17 mmol/L (21-32) Anion Gap 14 (6-14) 13 (6-14) Blood Urea Nitrogen 56 mg/dL (8-26) 56 mg/dL (8-26) Creatinine 1.9 mg/dL (0.7-1.3) 1.6 mg/dL (0.7-1.3) Estimated GFR (Cockcroft-Gault) 35.0 42.7 Glucose Level 130 mg/dL (70-99) 120 mg/dL (70-99) Lactic Acid Level 5.1 mmol/L (0.4-2.0) 3.8 mmol/L (0.4-2.0) Calcium Level 7.4 mg/dL (8.5-10.1) 7.4 mg/dL (8.5-10.1) Magnesium Level 2.2 mg/dL (1.8-2.4) 2.2 mg/dL (1.8-2.4) Troponin I Quantitative 0.662 ng/mL (0.000-0.055) 0.535 ng/mL (0.000-0.055) Urine Collection Type U cath Urine Color Lorna Urine Clarity Cloudy Urine pH 5.5 (<5.0-8.0) Urine Specific [place] 1.020 (1.000-1.030) Urine Protein 30 mg/dL (NEG-TRACE) Urine Glucose (UA) Negative mg/dL (NEG) Urine Ketones (Stick) Negative mg/dL (NEG) Urine Blood Large (NEG) Urine Nitrite Negative (NEG) Urine Bilirubin Negative (NEG) Urine Urobilinogen Dipstick 1.0 mg/dL (0.2 mg/dL) Urine Leukocyte Esterase Moderate (NEG) Urine RBC 20-40 /HPF (0-2) Urine WBC 20-40 /HPF (0-4) Urine Squamous Epithelial Cells Few /LPF Urine Amorphous Sediment Present /HPF Urine Bacteria Moderate /HPF (0-FEW) Urine Hyaline Casts Occasional /HPF Urine Granular Casts Few /HPF Urine Mucus Marked /LPF BUN/Creatinine Ratio 35 (6-20) Total Bilirubin 0.8 mg/dL (0.2-1.0) Aspartate Amino Transf (AST/SGOT) 3133 U/L (15-37) Alanine Aminotransferase (ALT/SGPT) 2456 U/L (16-63) Alkaline Phosphatase 171 U/L (46-116) Total Protein 5.8 g/dL (6.4-8.2) Albumin 2.0 g/dL (3.4-5.0) Albumin/Globulin Ratio 0.5 (1.0-1.7) Triglycerides Level 47 mg/dL (0-150) Cholesterol Level 65 mg/dL (0-200) LDL Cholesterol, Calculated 27 mg/dL (0-100) VLDL Cholesterol, Calculated 9 mg/dL (0-40) Non-HDL Cholesterol Calculated 36 mg/dL (0-129) HDL Cholesterol 29 mg/dL (40-60) Cholesterol/HDL Ratio 2.2 Test 12/26/20 12:50 Prothrombin Time 21.2 SEC (11.7-14.0) Prothromb Time International Ratio 1.9 (0.8-1.1) Heparin Anti-Xa Act, Unfractionated < 0.10 IU/mL (0.30-0.70) Images: Images Pending review of images from [facility] Assessment/Plan Assessment/Plan Septic shock requiring vasopressor support Acute UTI likely related to Forde catheter and obstructive uropathy Bilateral DVT Possible PE JULY due to vasomotor nephropathy History of CAD History of Alzheimer's dementia Lactic acidosis Elevated troponins likely due to type II demand ischemia Severe transaminitis may be related to shock liver Wheelchair-bound status Debilitation Severe protein malnutrition Admit to ICU for further management Continue vasopressor support to maintain MAPs greater than 55-60 Continue empiric IV antibiotics ID consult Follow-up with urine and blood cultures Continue heparin drip Pulmonology consult No need for chest CTA at this time unless patient becomes hemodynamically unstable and may require TPA versus thrombectomy will defer this management to pulmonology Appreciate cardiology consultcontinue with aspirin and possible outpatient ischemic work-up. Will trend LFTs and obtain hepatitis panel if LFTs do not trend downwards. I suspect this is more related to hypotensive shock liver. Continue heparin drip for DVT prophylaxis Protonix GI prophylaxis ADA diet Full code Discussed with RN and SW Disposition inpatient management as above Surrogate decision maker is daughter In addition to my E/M visit, advance care planning done with A total time of 20 minutes was spent from 9:00 to 915 face to face in discussion with the patient and family regarding their goals of care, CODE STATUS. A total of 45 minutes of critical care time was spent in reviewing chart, labs, and images. Discussed with RN and SW. Justifications for Admission Other Justification FRANCES ALVARADO MD Dec 26, 2020 14:22
[2020-12-26] MEDS ORDERED: PANTOPRAZOLE 40 MG TABLET.DR. PO SCH (15:00)
[2020-12-26] MEDS ORDERED: ONDANSETRON PF 4 MG/2 ML VIAL. ONE ×2 (15:19→16:00)
--- NOTE | 2020-12-26 15:26 | EKG ---
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
[2020-12-26] MEDS ORDERED: PROCHLORPERAZINE 10 MG/2 ML VIAL. IV PRN (15:30)
[2020-12-26] MEDS: DIGOXIN IV 500 MCG/2 ML AMPUL. IV PRN (15:37)
[2020-12-26] MEDS ORDERED: DIGOXIN IV 500 MCG/2 ML AMPUL. IV ONE (16:15)
--- NOTE | 2020-12-26 17:09 | RAD ---
EXAM: Abdomen sonogram. HISTORY: Transaminitis. TECHNIQUE: Sonographic imaging of the abdomen was performed. COMPARISON: None. FINDINGS: There is hepatomegaly and hepatic steatosis. No focal hepatic lesion is seen. There is gall bladder wall thickening. There is pericholecystic fluid. There is an echogenic right kidney. The panc reas, aorta and inferior vena cava are partially obscured due to bowel gas. The inferior vena cava ap pears to be dilated. IMPRESSION: 1. Hepatomegaly and hepatic steatosis. 2. Gallbladder wall thickening and pericholecystic fluid. The differential includes cholecystitis as well as changes due to intrinsic liver disease. Correlate with symptomatology. 3. Echogenic right kidney. This can be seen with medical renal disease. 4. Prominent IVC caliber. No thrombus is seen. Electronically signed by: Mariposa Meza MD (12/26/2020 5:06 PM) [id number]
[2020-12-26] MEDS ORDERED: ATORVASTATIN CALCIUM 20 MG TABLET PO SCH (21:00)
[2020-12-27] VITALS (24 sets, daily range): BP systolic 82–114; BP diastolic 48–67
[2020-12-27] MEDS: HEPARIN for IV BOLUS 10,000 UNIT/10 ML VIAL. IV PRN ×2 (03:21→18:30)
[2020-12-27] MEDS: PIPERACILLIN/TAZOBACTAM 2.25 GM in IV NORMAL SALINE 50ML 50 ML IV SCH ×3 (05:48→17:01)
--- NOTE | 2020-12-27 06:42 | PDOC ---
PULMONARY PROGRESS NOTES DATE: 12/27/20 TIME: 06:41 Subjective 02 2 lpm, sob better no cp on very low dose levo is thirsty Vitals Vital Signs Date Time Temp Pulse Resp B/P (MAP) Pulse Ox O2 Delivery O2 Flow Rate FiO2 12/27/20 06:00 101 23 103/63 (76) 100 Nasal Cannula 2.0 12/27/20 04:00 98.3 98.3 ROS: No Nausea General: Alert, No acute distress HEENT: Other (nc at perrl poor dentition ) Lungs: Clear Cardiovascular: S1, S2 Abdomen: Soft Neuro Exam: Alert Skin: Warm Labs Laboratory Tests Test 12/26/20 00:50 12/26/20 02:30 12/26/20 05:45 12/26/20 10:00 White Blood Count 18.5 x10^3/uL (4.0-11.0) 19.2 x10^3/uL (4.0-11.0) Red Blood Count 3.69 x10^6/uL (4.30-5.70) 3.51 x10^6/uL (4.30-5.70) Hemoglobin 9.2 g/dL (13.0-17.5) 8.8 g/dL (13.0-17.5) Hematocrit 29.4 % (39.0-53.0) 27.6 % (39.0-53.0) Mean Corpuscular Volume 80 fL (79-100) 79 fL (79-100) Mean Corpuscular Hemoglobin 25 pg (25-35) 25 pg (25-35) Mean Corpuscular Hemoglobin Concent 31 g/dL (31-37) 32 g/dL (31-37) Red Cell Distribution Width 15.0 % (11.5-14.5) 15.0 % (11.5-14.5) Platelet Count 250 x10^3/uL (140-400) 229 x10^3/uL (140-400) Neutrophils (%) (Auto) 78 % (31-73) Lymphocytes (%) (Auto) 12 % (24-48) Monocytes (%) (Auto) 10 % (0-9) Eosinophils (%) (Auto) 0 % (0-3) Basophils (%) (Auto) 0 % (0-3) Neutrophils # (Auto) 14.4 x10^3/uL (1.8-7.7) Lymphocytes # (Auto) 2.1 x10^3/uL (1.0-4.8) Monocytes # (Auto) 1.9 x10^3/uL (0.0-1.1) Eosinophils # (Auto) 0.0 x10^3/uL (0.0-0.7) Basophils # (Auto) 0.1 x10^3/uL (0.0-0.2) Segmented Neutrophils % 83 % (35-66) Band Neutrophils % 1 % (0-9) Lymphocytes % 12 % (24-48) Monocytes % 4 % (0-10) Platelet Estimate Adequate (ADEQUATE) Hypochromasia Slight Anisocytosis Slight Heparin Anti-Xa Act, Unfractionated < 0.10 IU/mL (0.30-0.70) < 0.10 IU/mL (0.30-0.70) Sodium Level 135 mmol/L (136-145) 138 mmol/L (136-145) Potassium Level 4.6 mmol/L (3.5-5.1) 4.9 mmol/L (3.5-5.1) Chloride Level 105 mmol/L (98-107) 108 mmol/L (98-107) Carbon Dioxide Level 16 mmol/L (21-32) 17 mmol/L (21-32) Anion Gap 14 (6-14) 13 (6-14) Blood Urea Nitrogen 56 mg/dL (8-26) 56 mg/dL (8-26) Creatinine 1.9 mg/dL (0.7-1.3) 1.6 mg/dL (0.7-1.3) Estimated GFR (Cockcroft-Gault) 35.0 42.7 Glucose Level 130 mg/dL (70-99) 120 mg/dL (70-99) Lactic Acid Level 5.1 mmol/L (0.4-2.0) 3.8 mmol/L (0.4-2.0) Calcium Level 7.4 mg/dL (8.5-10.1) 7.4 mg/dL (8.5-10.1) Magnesium Level 2.2 mg/dL (1.8-2.4) 2.2 mg/dL (1.8-2.4) Troponin I Quantitative 0.662 ng/mL (0.000-0.055) 0.535 ng/mL (0.000-0.055) Urine Collection Type U cath Urine Color Lorna Urine Clarity Cloudy Urine pH 5.5 (<5.0-8.0) Urine Specific [place] 1.020 (1.000-1.030) Urine Protein 30 mg/dL (NEG-TRACE) Urine Glucose (UA) Negative mg/dL (NEG) Urine Ketones (Stick) Negative mg/dL (NEG) Urine Blood Large (NEG) Urine Nitrite Negative (NEG) Urine Bilirubin Negative (NEG) Urine Urobilinogen Dipstick 1.0 mg/dL (0.2 mg/dL) Urine Leukocyte Esterase Moderate (NEG) Urine RBC 20-40 /HPF (0-2) Urine WBC 20-40 /HPF (0-4) Urine Squamous Epithelial Cells Few /LPF Urine Amorphous Sediment Present /HPF Urine Bacteria Moderate /HPF (0-FEW) Urine Hyaline Casts Occasional /HPF Urine Granular Casts Few /HPF Urine Mucus Marked /LPF Iron Level 23 ug/dL (65-175) Total Iron Binding Capacity 180 ug/dL (250-450) Iron Saturation 13 % (15-34) Vitamin B12 Level > 2000 pg/mL (247-911) BUN/Creatinine Ratio 35 (6-20) Total Bilirubin 0.8 mg/dL (0.2-1.0) Aspartate Amino Transf (AST/SGOT) 3133 U/L (15-37) Alanine Aminotransferase (ALT/SGPT) 2456 U/L (16-63) Alkaline Phosphatase 171 U/L (46-116) Total Protein 5.8 g/dL (6.4-8.2) Albumin 2.0 g/dL (3.4-5.0) Albumin/Globulin Ratio 0.5 (1.0-1.7) Triglycerides Level 47 mg/dL (0-150) Cholesterol Level 65 mg/dL (0-200) LDL Cholesterol, Calculated 27 mg/dL (0-100) VLDL Cholesterol, Calculated 9 mg/dL (0-40) Non-HDL Cholesterol Calculated 36 mg/dL (0-129) HDL Cholesterol 29 mg/dL (40-60) Cholesterol/HDL Ratio 2.2 Test 12/26/20 12:50 12/26/20 18:30 12/27/20 01:45 Prothrombin Time 21.2 SEC (11.7-14.0) Prothromb Time International Ratio 1.9 (0.8-1.1) Heparin Anti-Xa Act, Unfractionated < 0.10 IU/mL (0.30-0.70) < 0.10 IU/mL (0.30-0.70) < 0.10 IU/mL (0.30-0.70) Laboratory Tests Test 12/26/20 10:00 12/26/20 12:50 12/26/20 18:30 12/27/20 01:45 White Blood Count 19.2 x10^3/uL (4.0-11.0) Red Blood Count 3.51 x10^6/uL (4.30-5.70) Hemoglobin 8.8 g/dL (13.0-17.5) Hematocrit 27.6 % (39.0-53.0) Mean Corpuscular Volume 79 fL (79-100) Mean Corpuscular Hemoglobin 25 pg (25-35) Mean Corpuscular Hemoglobin Concent 32 g/dL (31-37) Red Cell Distribution Width 15.0 % (11.5-14.5) Platelet Count 229 x10^3/uL (140-400) Sodium Level 138 mmol/L (136-145) Potassium Level 4.9 mmol/L (3.5-5.1) Chloride Level 108 mmol/L (98-107) Carbon Dioxide Level 17 mmol/L (21-32) Anion Gap 13 (6-14) Blood Urea Nitrogen 56 mg/dL (8-26) Creatinine 1.6 mg/dL (0.7-1.3) Estimated GFR (Cockcroft-Gault) 42.7 BUN/Creatinine Ratio 35 (6-20) Glucose Level 120 mg/dL (70-99) Calcium Level 7.4 mg/dL (8.5-10.1) Magnesium Level 2.2 mg/dL (1.8-2.4) Total Bilirubin 0.8 mg/dL (0.2-1.0) Aspartate Amino Transf (AST/SGOT) 3133 U/L (15-37) Alanine Aminotransferase (ALT/SGPT) 2456 U/L (16-63) Alkaline Phosphatase 171 U/L (46-116) Troponin I Quantitative 0.535 ng/mL (0.000-0.055) Total Protein 5.8 g/dL (6.4-8.2) Albumin 2.0 g/dL (3.4-5.0) Albumin/Globulin Ratio 0.5 (1.0-1.7) Triglycerides Level 47 mg/dL (0-150) Cholesterol Level 65 mg/dL (0-200) LDL Cholesterol, Calculated 27 mg/dL (0-100) VLDL Cholesterol, Calculated 9 mg/dL (0-40) Non-HDL Cholesterol Calculated 36 mg/dL (0-129) HDL Cholesterol 29 mg/dL (40-60) Cholesterol/HDL Ratio 2.2 Prothrombin Time 21.2 SEC (11.7-14.0) Prothromb Time International Ratio 1.9 (0.8-1.1) Heparin Anti-Xa Act, Unfractionated < 0.10 IU/mL (0.30-0.70) < 0.10 IU/mL (0.30-0.70) < 0.10 IU/mL (0.30-0.70) Medications Active Scripts Medications Dose Route/Sig Max Daily Dose Days Date Category Namenda (Memantine Hcl) 10 Mg Tablet 10 Mg PO DAILY 12/26/20 Reported Trazodone Hcl 50 Mg Tablet 1 Tab PO QHS 12/26/20 Reported Pantoprazole Sodium (Pantoprazole Sodium) 40 Mg Tablet.dr 40 Mg PO DAILYAC 12/26/20 Reported Cefuroxime (Cefuroxime Axetil) 250 Mg Tablet 250 Mg PO BID 12/26/20 Reported Finasteride 5 Mg Tablet 5 Mg PO DAILY 12/26/20 Reported Donepezil Hcl 10 Mg Tablet 1 Tab PO HS 12/26/20 Reported Atorvastatin Calcium 20 Mg Tablet 1 Tab PO DAILY 12/26/20 Reported Children's Aspirin (Aspirin) 81 Mg Tab.chew 1 Tab PO DAILY 30 12/26/20 Reported Impression . IMPRESSION: 1. Acute hypoxic respiratory failure secondary to septic shock and suspected acute pulmonary embolism. 2. Shock. Likely contributed by sepsis. The patient has chronic Forde catheter and has a history of recurrent urinary tract infection. Another contributing factor could be pulmonary embolism but clinically thought to be less likely. 3. Bilateral lower extremity deep vein thrombosis. Echo reported as RV dilatation. Likely has pulmonary embolism as well. s/p ivc filter years ago details not known Risk factors being a mobilization. 4. Chronic Forde catheter and recurrent urinary tract infections, now with severe urinary tract infection and sepsis. 5. Acute kidney injury related to sepsis. 6. No significant tobacco history. 7. Leukocytosis secondary to urinary tract infection. 8. Lactic acidosis secondary to sepsis. 9. Mildly increased troponin, likely secondary to RV dysfunction from pulmonary embolism. Plan . RECOMMENDATIONS: 1. 02 titration on nc 2 lpm 2. Continue to monitor his blood pressure closely. 3. Levophed to keep map 65. 4. IV fluids per protocol for sepsis. 5. Monitor renal function. 6. V/Q scan when able. Cannot do CTA chest unless JULY resolve. 7. The patient will require a minimum of 6 months of anticoagulation, probably lifelong since he is wheelchair bound and will always at future risk for thromboembolic disease. 8. Monitor white cell count. 9. Initiate broad spectrum antibiotic, per id 9. Infectious Disease consult and recommendations 10. Discussed with both the daughters RN and RT STEPHANIE JONES MD Dec 27, 2020 06:42
[2020-12-27 07:07] LABS: ALBUMIN 1.9 g/dL (3.4-5.0); CALCIUM 7.3 mg/dL (8.5-10.1); CREATININE 1.3 mg/dL (0.7-1.3); DIRECT BILIRUBIN 0.5 mg/dL (0.0-0.2); GFR 54.3; POTASSIUM 4.4 mmol/L (3.5-5.1); TOTAL BILIRUBIN 0.8 mg/dL (0.2-1.0); TOTAL PROTEIN 5.1 g/dL (6.4-8.2)
[2020-12-27 07:23] LABS: BASO # 0.1 x10^3/uL (0.0-0.2); BASO % 0 % (0-3); EOS # 0.1 x10^3/uL (0.0-0.7); EOS % 0 % (0-3); HEMATOCRIT 25.2 % (39.0-53.0); HEMOGLOBIN 8.1 g/dL (13.0-17.5); LYMPH # 2.1 x10^3/uL (1.0-4.8); LYMPH % 11 % (24-48); MEAN CORPUSCULAR HEMOGLOBIN 25 pg (25-35); MEAN CORPUSCULAR HGB CONC 32 g/dL (31-37); MEAN CORPUSCULAR VOLUME 79 fL (79-100); MONO # 1.6 x10^3/uL (0.0-1.1); MONO % 9 % (0-9); NEUT # 14.8 x10^3/uL (1.8-7.7); NEUT % 79 % (31-73); PLATELET COUNT 211 x10^3/uL (140-400); RED BLOOD COUNT 3.19 x10^6/uL (4.30-5.70); WHITE BLOOD COUNT 18.7 x10^3/uL (4.0-11.0)
[2020-12-27] MEDS ORDERED: PANTOPRAZOLE IV PUSH 40 MG VIAL. IVP SCH (07:30)
--- NOTE | 2020-12-27 07:30 | PDOC ---
Infectious Disease Note Subjective: Subjective Patient resting quietly Afebrile Remains on low-grade pressors Discussed with nursing staff Vital Signs: Vital Signs Vital Signs Date Time Temp Pulse Resp B/P (MAP) Pulse Ox O2 Delivery O2 Flow Rate FiO2 12/27/20 06:00 101 23 103/63 (76) 100 Nasal Cannula 2.0 12/27/20 04:00 98.3 98.3 Physical Exam: PHYSICAL EXAM GENERAL: Sleepy, arousable, appears comfortable, HEENT: Atraumatic, normocephalic. Mucous membranes moist, pink. NECK: Supple. Right IJ in place. Right IJ clean. HEART: S1, S2. No murmurs. ABDOMEN: Soft, nontender, nondistended. GENITOURINARY: Forde in place. EXTREMITIES: Pedal edema, no cyanosis. DERMATOLOGIC: Warm, dry, no generalized rash. NEUROLOGIC: Sleepy, arousable, confusion, which is baseline. PSYCHIATRIC: Calm and cooperative. MUSCULOSKELETAL: Changes suggestive of DJD. Medications: Inpatient Meds: Medications reviewed. Labs: Lab Laboratory Tests Test 12/26/20 10:00 12/26/20 12:50 12/26/20 18:30 12/27/20 01:45 White Blood Count 19.2 x10^3/uL (4.0-11.0) Red Blood Count 3.51 x10^6/uL (4.30-5.70) Hemoglobin 8.8 g/dL (13.0-17.5) Hematocrit 27.6 % (39.0-53.0) Mean Corpuscular Volume 79 fL (79-100) Mean Corpuscular Hemoglobin 25 pg (25-35) Mean Corpuscular Hemoglobin Concent 32 g/dL (31-37) Red Cell Distribution Width 15.0 % (11.5-14.5) Platelet Count 229 x10^3/uL (140-400) Sodium Level 138 mmol/L (136-145) Potassium Level 4.9 mmol/L (3.5-5.1) Chloride Level 108 mmol/L (98-107) Carbon Dioxide Level 17 mmol/L (21-32) Anion Gap 13 (6-14) Blood Urea Nitrogen 56 mg/dL (8-26) Creatinine 1.6 mg/dL (0.7-1.3) Estimated GFR (Cockcroft-Gault) 42.7 BUN/Creatinine Ratio 35 (6-20) Glucose Level 120 mg/dL (70-99) Calcium Level 7.4 mg/dL (8.5-10.1) Magnesium Level 2.2 mg/dL (1.8-2.4) Total Bilirubin 0.8 mg/dL (0.2-1.0) Aspartate Amino Transf (AST/SGOT) 3133 U/L (15-37) Alanine Aminotransferase (ALT/SGPT) 2456 U/L (16-63) Alkaline Phosphatase 171 U/L (46-116) Troponin I Quantitative 0.535 ng/mL (0.000-0.055) Total Protein 5.8 g/dL (6.4-8.2) Albumin 2.0 g/dL (3.4-5.0) Albumin/Globulin Ratio 0.5 (1.0-1.7) Triglycerides Level 47 mg/dL (0-150) Cholesterol Level 65 mg/dL (0-200) LDL Cholesterol, Calculated 27 mg/dL (0-100) VLDL Cholesterol, Calculated 9 mg/dL (0-40) Non-HDL Cholesterol Calculated 36 mg/dL (0-129) HDL Cholesterol 29 mg/dL (40-60) Cholesterol/HDL Ratio 2.2 Prothrombin Time 21.2 SEC (11.7-14.0) Prothromb Time International Ratio 1.9 (0.8-1.1) Heparin Anti-Xa Act, Unfractionated < 0.10 IU/mL (0.30-0.70) < 0.10 IU/mL (0.30-0.70) < 0.10 IU/mL (0.30-0.70) Test 12/27/20 05:45 White Blood Count 18.7 x10^3/uL (4.0-11.0) Red Blood Count 3.19 x10^6/uL (4.30-5.70) Hemoglobin 8.1 g/dL (13.0-17.5) Hematocrit 25.2 % (39.0-53.0) Mean Corpuscular Volume 79 fL (79-100) Mean Corpuscular Hemoglobin 25 pg (25-35) Mean Corpuscular Hemoglobin Concent 32 g/dL (31-37) Red Cell Distribution Width 15.0 % (11.5-14.5) Platelet Count 211 x10^3/uL (140-400) Neutrophils (%) (Auto) 79 % (31-73) Lymphocytes (%) (Auto) 11 % (24-48) Monocytes (%) (Auto) 9 % (0-9) Eosinophils (%) (Auto) 0 % (0-3) Basophils (%) (Auto) 0 % (0-3) Neutrophils # (Auto) 14.8 x10^3/uL (1.8-7.7) Lymphocytes # (Auto) 2.1 x10^3/uL (1.0-4.8) Monocytes # (Auto) 1.6 x10^3/uL (0.0-1.1) Eosinophils # (Auto) 0.1 x10^3/uL (0.0-0.7) Basophils # (Auto) 0.1 x10^3/uL (0.0-0.2) Sodium Level 140 mmol/L (136-145) Potassium Level 4.4 mmol/L (3.5-5.1) Chloride Level 109 mmol/L (98-107) Carbon Dioxide Level 20 mmol/L (21-32) Anion Gap 11 (6-14) Blood Urea Nitrogen 42 mg/dL (8-26) Creatinine 1.3 mg/dL (0.7-1.3) Estimated GFR (Cockcroft-Gault) 54.3 Glucose Level 96 mg/dL (70-99) Calcium Level 7.3 mg/dL (8.5-10.1) Total Bilirubin 0.8 mg/dL (0.2-1.0) Direct Bilirubin 0.5 mg/dL (0.0-0.2) Aspartate Amino Transf (AST/SGOT) 3121 U/L (15-37) Alanine Aminotransferase (ALT/SGPT) 2736 U/L (16-63) Alkaline Phosphatase 178 U/L (46-116) Total Protein 5.1 g/dL (6.4-8.2) Albumin 1.9 g/dL (3.4-5.0) Objective: Assessment: 1. Sepsis. 2. Urinary tract infection with chronic indwelling Forde.Forde changed 3. Urinary retention. 4. Leukocytosis and lactic acidosis. 5. deep venous thrombosis with pulmonary embolism. IVC on ultrasound 6. Acute kidney injury. 7. Alzheimer's advanced. 8. Non-ST elevation myocardial infarction. 9. Abnormal LFTs.likely shock liver 10. Coronary artery disease. 11. Generalized debility. 12. Hematuria. 13. History of recurrent UTIs Plan: Plan of Care RECOMMENDATIONS: 1. Continue Zosyn. 2. Continue Zyvox. 3. Follow up on urine cultures and blood cultures here and from [facility]. awaiting micro results from [facility] for my review. 4. Follow up labs. 5. Maintain aspiration precaution. 6. Continue supportive care. 7. Abdominal ultrasound reviewed DEXTER MORALES MD Dec 27, 2020 07:30
[2020-12-27] MEDS: ASPIRIN ENTERIC COATED 81 MG TABLET.DR. PO SCH (09:32)
[2020-12-27 09:56] LABS: PROTHROMBIN TIME PATIENT 21.9 SEC (11.7-14.0)
--- NOTE | 2020-12-27 11:19 | PDOC ---
[employer] PROGRESS NOTE Date of Service DOS: DATE: 12/27/20 TIME: 11:13 Chief Complaint Chief Complaint Concern for acute cholecystitis Septic shock requiring vasopressor support Acute UTI likely related to Forde catheter and obstructive uropathy Bilateral DVT Possible PE JULY due to vasomotor nephropathy History of CAD History of Alzheimer's dementia Lactic acidosis Elevated troponins likely due to type II demand ischemia Severe transaminitis may be related to shock liver Wheelchair-bound status Debilitation Severe protein malnutrition History of CHF, unknown LVEF pending TTE General surgery consulted for consideration of possible surgery versus perc valeria Continue digoxin as needed for goal of heart rate less than 110 will defer this to cardiology Continue vasopressor support to maintain MAPs greater than 55-60 Continue empiric IV antibiotics ID consult Follow-up with urine and blood cultures Continue heparin drip Pulmonology consult No need for chest CTA at this time unless patient becomes hemodynamically unstable and may require TPA versus thrombectomy will defer this management to pulmonology Appreciate cardiology consultcontinue with aspirin and possible outpatient ischemic work-up. Will trend LFTs and obtain hepatitis panel if LFTs do not trend downwards. I suspect this is more related to hypotensive shock liver. Pending acute hepatitis panel Continue heparin drip for DVT prophylaxis Protonix GI prophylaxis ADA diet Partial DNRno chest compressions okay with intubation Discussed with RN and SW Disposition inpatient management as above Surrogate decision maker is daughter History of Present Illness History of Present Illness 70-year-old male with past medical history of chronic indwelling Forde catheter placed due to BPH, dyslipidemia, GERD, Alzheimer's dementia, obstructive uropathy who was transferred from [facility] due to hypotension, UTI, and bilateral DVT/PE. Patient actually presented to the ED at [facility] for back pain. He is unsure how long he has had the back pain but he does come from a nursing facility and was found to have increased WBC and elevated creatinine. Daughter is present in the room said the patient is fully was clogged and also had dark urine. Patient is originally from [place] and he had the Forde placed in July of this year from possibly related to his prostate. Patient was started on IV antibiotics and heparin drip and patient was transferred over to [facility] because [facility] did not have any ICU bed availability. Currently patient denies any fevers, chest pain, shortness of breath, abdominal pain, diarrhea or burning upon urination. 12/27/2020 No acute events overnight. Patient feels a little better. Complains of some vague right upper quadrant pain. Had some nausea vomiting episode at 7:00 yesterday. Total urine output is 1 L. Saturating 100% on 2 L nasal cannula. Vasopressor still continuing. Patient's chart, labs, images were reviewed and discussed with RN A total of 35 minutes of critical care time was spent in reviewing chart, labs, and images. Discussed with RN and SW. In addition to my E/M visit, advance care planning done with A total time of 20 minutes was spent from 830 to 850 face to face in discussion with the patient and both daughters regarding the patient's goals of care, CODE STATUS. Vitals/I&O Vitals/I&O: Vital Signs Date Time Temp Pulse Resp B/P (MAP) Pulse Ox O2 Delivery O2 Flow Rate FiO2 12/27/20 06:00 101 23 103/63 (76) 100 Nasal Cannula 2.0 12/27/20 04:00 98.3 98.3 I & O 12/26/20 12/26/20 12/27/20 15:00 23:00 07:00 Intake Total 50 ml 1195 ml Output Total 190 ml 400 ml 445 ml Balance -140 ml 795 ml -445 ml Physical Exam Physical Exam: GENERAL: Sleepy, arousable, appears comfortable, HEENT: Atraumatic, normocephalic. Mucous membranes moist, pink. NECK: Supple. Right IJ in place. Right IJ clean. HEART: S1, S2. No murmurs. ABDOMEN: Soft, nontender, nondistended. GENITOURINARY: Forde in place. EXTREMITIES: Pedal edema, no cyanosis. DERMATOLOGIC: Warm, dry, no generalized rash. NEUROLOGIC: Sleepy, arousable, confusion, which is baseline. PSYCHIATRIC: Calm and cooperative. MUSCULOSKELETAL: Changes suggestive of DJD. General: Alert, Cooperative, No acute distress Heart: Regular rate (SR) Lungs: Clear Abdomen: Soft, Other (Mild epigastric tenderness upon palpation) Extremities: No cyanosis, Other (2+ bilateral LE pitting edema) Skin: No rashes Labs Labs: Laboratory Tests Test 12/26/20 12:50 12/26/20 18:30 12/27/20 01:45 12/27/20 05:45 Prothrombin Time 21.2 SEC (11.7-14.0) Prothromb Time International Ratio 1.9 (0.8-1.1) Heparin Anti-Xa Act, Unfractionated < 0.10 IU/mL (0.30-0.70) < 0.10 IU/mL (0.30-0.70) < 0.10 IU/mL (0.30-0.70) White Blood Count 18.7 x10^3/uL (4.0-11.0) Red Blood Count 3.19 x10^6/uL (4.30-5.70) Hemoglobin 8.1 g/dL (13.0-17.5) Hematocrit 25.2 % (39.0-53.0) Mean Corpuscular Volume 79 fL (79-100) Mean Corpuscular Hemoglobin 25 pg (25-35) Mean Corpuscular Hemoglobin Concent 32 g/dL (31-37) Red Cell Distribution Width 15.0 % (11.5-14.5) Platelet Count 211 x10^3/uL (140-400) Neutrophils (%) (Auto) 79 % (31-73) Lymphocytes (%) (Auto) 11 % (24-48) Monocytes (%) (Auto) 9 % (0-9) Eosinophils (%) (Auto) 0 % (0-3) Basophils (%) (Auto) 0 % (0-3) Neutrophils # (Auto) 14.8 x10^3/uL (1.8-7.7) Lymphocytes # (Auto) 2.1 x10^3/uL (1.0-4.8) Monocytes # (Auto) 1.6 x10^3/uL (0.0-1.1) Eosinophils # (Auto) 0.1 x10^3/uL (0.0-0.7) Basophils # (Auto) 0.1 x10^3/uL (0.0-0.2) Sodium Level 140 mmol/L (136-145) Potassium Level 4.4 mmol/L (3.5-5.1) Chloride Level 109 mmol/L (98-107) Carbon Dioxide Level 20 mmol/L (21-32) Anion Gap 11 (6-14) Blood Urea Nitrogen 42 mg/dL (8-26) Creatinine 1.3 mg/dL (0.7-1.3) Estimated GFR (Cockcroft-Gault) 54.3 Glucose Level 96 mg/dL (70-99) Calcium Level 7.3 mg/dL (8.5-10.1) Total Bilirubin 0.8 mg/dL (0.2-1.0) Direct Bilirubin 0.5 mg/dL (0.0-0.2) Aspartate Amino Transf (AST/SGOT) 3121 U/L (15-37) Alanine Aminotransferase (ALT/SGPT) 2736 U/L (16-63) Alkaline Phosphatase 178 U/L (46-116) Total Protein 5.1 g/dL (6.4-8.2) Albumin 1.9 g/dL (3.4-5.0) Test 12/27/20 09:30 Prothrombin Time 21.9 SEC (11.7-14.0) Prothromb Time International Ratio 1.9 (0.8-1.1) Comment Review of Relevant I have reviewed the following items hetal (where applicable) has been applied. Medications: Current Medications Medications (Trade) Dose Ordered Sig/Waylon Route PRN Reason Start Time Stop Time Status Last Admin Dose Admin Piperacillin Sod/ Tazobactam Sod 2.25 gm/Sodium Chloride 50 ml @ 100 mls/hr Q6HRS IV 12/26/20 12:00 12/27/20 05:48 Linezolid/Dextrose 300 ml @ 300 mls/hr Q12HR IV 12/26/20 13:00 12/26/20 20:54 Digoxin (Lanoxin) 250 mcg PRN Q24HRS PRN IV SVT 12/26/20 15:15 12/26/20 15:37 Digoxin (Lanoxin) 250 mcg 1X ONCE IV 12/26/20 16:15 12/26/20 16:16 DC 12/26/20 16:05 Pantoprazole Sodium (PROTONIX VIAL for IV PUSH) 40 mg DAILYAC IVP 12/27/20 07:30 12/27/20 09:32 Justifications for Admission Other Justification FRANCES ALVARADO MD Dec 27, 2020 11:19
--- NOTE | 2020-12-27 14:41 | PDOC2 ---
CONSULT Date of Consult Date of Consult DATE: 12/27/20 TIME: 14:32 Reason for Consult Reason for Consult: elevated LFT, gallbladder wall thickening Referring Physician Referring Physician: Dr. King Identification/Chief Complaint Chief Complaint abd pain Source Source: Caregiver, Chart review, Patient History of Present Illness Reason for Visit: 70 yo M with severe sepsis, on pressors in ICU. Sepsis appears to be urinary in nature and pt on broad spectrum abx. Pt asleep, but awakens and communicates. Past Medical History Cardiovascular: CAD, HTN, Hyperlipidemia Pulmonary: No pertinent hx CENTRAL NERVOUS SYSTEM: Dementia (alzheimers) GI: GERD Heme/Onc: No pertinent hx Hepatobiliary: No pertinent hx Musculoskeletal: Osteoarthritis Renal/: Acute renal failure, UTI, Benign prostatic enlarg. Dermatology: No pertinent hx Past Surgical History Past Surgical History: Arthroscopy (right hip fracture repair, right foot surgery) Family History Family History: Heart Disease Social History No ALCOHOL: none Drugs: None Lives: Skilled Nursing Current Medications Current Medications Current Medications Norepinephrine Bitartrate 8 mg/ Dextrose 258 ml @ 13.41 mls/ hr CONT PRN IV PER PROTOCOL Last administered on 12/26/20at 01:18; Start 12/26/20 at 00:15 Heparin Sodium/ Dextrose 250 ml @ 0 mls/hr CONT PRN IV PER PROTOCOL Last administered on 12/26/20at 04:00; Start 12/26/20 at 00:15 Heparin Sodium (Porcine) (Heparin Sodium) 2,079 unit PRN Q6HRS PRN IV FOR UFH LEVEL LESS THAN 0.2 Last administered on 12/27/20at 03:21; Start 12/26/20 at 00:15 Heparin Sodium (Porcine) (Heparin Sodium) 1,050 unit PRN Q6HRS PRN IV FOR UFH LEVEL 0.2 - 0.29; Start 12/26/20 at 00:15 Info (Anti-Coagulation Monitoring By Pharmacy) 1 each PRN DAILY PRN MC PER PROTOCOL Last administered on 12/26/20at 01:14; Start 12/26/20 at 01:15 Fentanyl Citrate (Fentanyl 2ml Vial) 50 mcg PRN Q2HR PRN IVP SEVERE PAIN 7-10 Last administered on 12/26/20at 16:36; Start 12/26/20 at 01:30 Sodium Chloride 1,000 ml @ 100 mls/hr Q10H IV Last administered on 12/26/20at 23:54; Start 12/26/20 at 01:30 Sodium Chloride 1,000 ml @ 1,000 mls/hr Q1H IV Last administered on 12/26/20at 02:21; Start 12/26/20 at 02:00; Stop 12/26/20 at 04:03; Status DC Aspirin (Ecotrin) 81 mg [id number] PO Last administered on 12/27/20at 09:32; Start 12/26/20 at 11:00 Atorvastatin Calcium (Lipitor) 20 mg QHS PO ; Start 12/26/20 at 21:00; Stop 12/26/20 at 13:00; Status DC Piperacillin Sod/ Tazobactam Sod (Zosyn Per Pharmacy) 1 each PRN DAILY PRN MC SEE COMMENTS; Start 12/26/20 at 12:00 Piperacillin Sod/ Tazobactam Sod 2.25 gm/Sodium Chloride 50 ml @ 100 mls/hr Q6HRS IV Last administered on 12/27/20at 05:48; Start 12/26/20 at 12:00 Linezolid/Dextrose 300 ml @ 300 mls/hr Q12HR IV Last administered on 12/26/20at 20:54; Start 12/26/20 at 13:00 Pantoprazole Sodium (Protonix) 40 mg DAILYAC PO ; Start 12/26/20 at 15:00; Stop 12/26/20 at 16:57; Status DC Digoxin (Lanoxin) 250 mcg PRN Q24HRS PRN IV SVT Last administered on 12/26/20at 15:37; Start 12/26/20 at 15:15 Ondansetron HCl (Zofran) 4 mg STK-MED ONCE .ROUTE ; Start 12/26/20 at 15:19; Stop 12/26/20 at 15:19; Status DC Prochlorperazine Edisylate (Compazine) 10 mg PRN Q6HRS PRN IV NAUSEA/VOMITING; Start 12/26/20 at 15:30 Digoxin (Lanoxin) 250 mcg 1X ONCE IV Last administered on 12/26/20at 16:05; Start 12/26/20 at 16:15; Stop 12/26/20 at 16:16; Status DC Pantoprazole Sodium (PROTONIX VIAL for IV PUSH) 40 mg DAILYAC IVP Last adminis tered on 12/27/20at 09:32; Start 12/27/20 at 07:30 Active Scripts Active Reported Namenda (Memantine Hcl) 10 Mg Tablet 10 Mg PO DAILY Trazodone Hcl 50 Mg Tablet 1 Tab PO QHS Pantoprazole Sodium (Pantoprazole Sodium) 40 Mg Tablet.dr 40 Mg PO DAILYAC Cefuroxime (Cefuroxime Axetil) 250 Mg Tablet 250 Mg PO BID Finasteride 5 Mg Tablet 5 Mg PO DAILY Donepezil Hcl 10 Mg Tablet 1 Tab PO HS Atorvastatin Calcium 20 Mg Tablet 1 Tab PO DAILY Children's Aspirin (Aspirin) 81 Mg Tab.chew 1 Tab PO DAILY 30 Days Allergies Allergies: Coded Allergies: No Known Drug Allergies (Unverified , 12/26/20) ROS Gastrointestinal: Yes Abdominal Pain Physical Exam General: Alert, Cooperative, mild distress HEENT: Atraumatic Lungs: Normal air movement Abdomen: Soft, Other (mild TTP RUQ) Extremities: No clubbing, No cyanosis, No tenderness/swelling Skin: No rashes, No breakdown Vitals VITALS Vital Signs Date Time Temp Pulse Resp B/P (MAP) Pulse Ox O2 Delivery O2 Flow Rate FiO2 12/27/20 06:00 101 23 103/63 (76) 100 Nasal Cannula 2.0 12/27/20 04:00 98.3 98.3 Labs Labs Laboratory Tests Test 12/26/20 00:50 12/26/20 02:30 12/26/20 05:45 12/26/20 10:00 White Blood Count 18.5 x10^3/uL (4.0-11.0) 19.2 x10^3/uL (4.0-11.0) Red Blood Count 3.69 x10^6/uL (4.30-5.70) 3.51 x10^6/uL (4.30-5.70) Hemoglobin 9.2 g/dL (13.0-17.5) 8.8 g/dL (13.0-17.5) Hematocrit 29.4 % (39.0-53.0) 27.6 % (39.0-53.0) Mean Corpuscular Volume 80 fL (79-100) 79 fL (79-100) Mean Corpuscular Hemoglobin 25 pg (25-35) 25 pg (25-35) Mean Corpuscular Hemoglobin Concent 31 g/dL (31-37) 32 g/dL (31-37) Red Cell Distribution Width 15.0 % (11.5-14.5) 15.0 % (11.5-14.5) Platelet Count 250 x10^3/uL (140-400) 229 x10^3/uL (140-400) Neutrophils (%) (Auto) 78 % (31-73) Lymphocytes (%) (Auto) 12 % (24-48) Monocytes (%) (Auto) 10 % (0-9) Eosinophils (%) (Auto) 0 % (0-3) Basophils (%) (Auto) 0 % (0-3) Neutrophils # (Auto) 14.4 x10^3/uL (1.8-7.7) Lymphocytes # (Auto) 2.1 x10^3/uL (1.0-4.8) Monocytes # (Auto) 1.9 x10^3/uL (0.0-1.1) Eosinophils # (Auto) 0.0 x10^3/uL (0.0-0.7) Basophils # (Auto) 0.1 x10^3/uL (0.0-0.2) Segmented Neutrophils % 83 % (35-66) Band Neutrophils % 1 % (0-9) Lymphocytes % 12 % (24-48) Monocytes % 4 % (0-10) Platelet Estimate Adequate (ADEQUATE) Hypochromasia Slight Anisocytosis Slight Heparin Anti-Xa Act, Unfractionated < 0.10 IU/mL (0.30-0.70) < 0.10 IU/mL (0.30-0.70) Sodium Level 135 mmol/L (136-145) 138 mmol/L (136-145) Potassium Level 4.6 mmol/L (3.5-5.1) 4.9 mmol/L (3.5-5.1) Chloride Level 105 mmol/L (98-107) 108 mmol/L (98-107) Carbon Dioxide Level 16 mmol/L (21-32) 17 mmol/L (21-32) Anion Gap 14 (6-14) 13 (6-14) Blood Urea Nitrogen 56 mg/dL (8-26) 56 mg/dL (8-26) Creatinine 1.9 mg/dL (0.7-1.3) 1.6 mg/dL (0.7-1.3) Estimated GFR (Cockcroft-Gault) 35.0 42.7 Glucose Level 130 mg/dL (70-99) 120 mg/dL (70-99) Lactic Acid Level 5.1 mmol/L (0.4-2.0) 3.8 mmol/L (0.4-2.0) Calcium Level 7.4 mg/dL (8.5-10.1) 7.4 mg/dL (8.5-10.1) Magnesium Level 2.2 mg/dL (1.8-2.4) 2.2 mg/dL (1.8-2.4) Troponin I Quantitative 0.662 ng/mL (0.000-0.055) 0.535 ng/mL (0.000-0.055) Urine Collection Type U cath Urine Color Lorna Urine Clarity Cloudy Urine pH 5.5 (<5.0-8.0) Urine Specific [place] 1.020 (1.000-1.030) Urine Protein 30 mg/dL (NEG-TRACE) Urine Glucose (UA) Negative mg/dL (NEG) Urine Ketones (Stick) Negative mg/dL (NEG) Urine Blood Large (NEG) Urine Nitrite Negative (NEG) Urine Bilirubin Negative (NEG) Urine Urobilinogen Dipstick 1.0 mg/dL (0.2 mg/dL) Urine Leukocyte Esterase Moderate (NEG) Urine RBC 20-40 /HPF (0-2) Urine WBC 20-40 /HPF (0-4) Urine Squamous Epithelial Cells Few /LPF Urine Amorphous Sediment Present /HPF Urine Bacteria Moderate /HPF (0-FEW) Urine Hyaline Casts Occasional /HPF Urine Granular Casts Few /HPF Urine Mucus Marked /LPF Iron Level 23 ug/dL (65-175) Total Iron Binding Capacity 180 ug/dL (250-450) Iron Saturation 13 % (15-34) Vitamin B12 Level > 2000 pg/mL (247-911) BUN/Creatinine Ratio 35 (6-20) Total Bilirubin 0.8 mg/dL (0.2-1.0) Aspartate Amino Transf (AST/SGOT) 3133 U/L (15-37) Alanine Aminotransferase (ALT/SGPT) 2456 U/L (16-63) Alkaline Phosphatase 171 U/L (46-116) Total Protein 5.8 g/dL (6.4-8.2) Albumin 2.0 g/dL (3.4-5.0) Albumin/Globulin Ratio 0.5 (1.0-1.7) Triglycerides Level 47 mg/dL (0-150) Cholesterol Level 65 mg/dL (0-200) LDL Cholesterol, Calculated 27 mg/dL (0-100) VLDL Cholesterol, Calculated 9 mg/dL (0-40) Non-HDL Cholesterol Calculated 36 mg/dL (0-129) HDL Cholesterol 29 mg/dL (40-60) Cholesterol/HDL Ratio 2.2 Test 12/26/20 12:50 12/26/20 18:30 12/27/20 01:45 12/27/20 05:45 Prothrombin Time 21.2 SEC (11.7-14.0) Prothromb Time International Ratio 1.9 (0.8-1.1) Heparin Anti-Xa Act, Unfractionated < 0.10 IU/mL (0.30-0.70) < 0.10 IU/mL (0.30-0.70) < 0.10 IU/mL (0.30-0.70) White Blood Count 18.7 x10^3/uL (4.0-11.0) Red Blood Count 3.19 x10^6/uL (4.30-5.70) Hemoglobin 8.1 g/dL (13.0-17.5) Hematocrit 25.2 % (39.0-53.0) Mean Corpuscular Volume 79 fL (79-100) Mean Corpuscular Hemoglobin 25 pg (25-35) Mean Corpuscular Hemoglobin Concent 32 g/dL (31-37) Red Cell Distribution Width 15.0 % (11.5-14.5) Platelet Count 211 x10^3/uL (140-400) Neutrophils (%) (Auto) 79 % (31-73) Lymphocytes (%) (Auto) 11 % (24-48) Monocytes (%) (Auto) 9 % (0-9) Eosinophils (%) (Auto) 0 % (0-3) Basophils (%) (Auto) 0 % (0-3) Neutrophils # (Auto) 14.8 x10^3/uL (1.8-7.7) Lymphocytes # (Auto) 2.1 x10^3/uL (1.0-4.8) Monocytes # (Auto) 1.6 x10^3/uL (0.0-1.1) Eosinophils # (Auto) 0.1 x10^3/uL (0.0-0.7) Basophils # (Auto) 0.1 x10^3/uL (0.0-0.2) Sodium Level 140 mmol/L (136-145) Potassium Level 4.4 mmol/L (3.5-5.1) Chloride Level 109 mmol/L (98-107) Carbon Dioxide Level 20 mmol/L (21-32) Anion Gap 11 (6-14) Blood Urea Nitrogen 42 mg/dL (8-26) Creatinine 1.3 mg/dL (0.7-1.3) Estimated GFR (Cockcroft-Gault) 54.3 Glucose Level 96 mg/dL (70-99) Calcium Level 7.3 mg/dL (8.5-10.1) Total Bilirubin 0.8 mg/dL (0.2-1.0) Direct Bilirubin 0.5 mg/dL (0.0-0.2) Aspartate Amino Transf (AST/SGOT) 3121 U/L (15-37) Alanine Aminotransferase (ALT/SGPT) 2736 U/L (16-63) Alkaline Phosphatase 178 U/L (46-116) Total Protein 5.1 g/dL (6.4-8.2) Albumin 1.9 g/dL (3.4-5.0) Test 12/27/20 09:30 Prothrombin Time 21.9 SEC (11.7-14.0) Prothromb Time International Ratio 1.9 (0.8-1.1) Laboratory Tests Test 12/26/20 18:30 12/27/20 01:45 12/27/20 05:45 12/27/20 09:30 Heparin Anti-Xa Act, Unfractionated < 0.10 IU/mL (0.30-0.70) < 0.10 IU/mL (0.30-0.70) White Blood Count 18.7 x10^3/uL (4.0-11.0) Red Blood Count 3.19 x10^6/uL (4.30-5.70) Hemoglobin 8.1 g/dL (13.0-17.5) Hematocrit 25.2 % (39.0-53.0) Mean Corpuscular Volume 79 fL (79-100) Mean Corpuscular Hemoglobin 25 pg (25-35) Mean Corpuscular Hemoglobin Concent 32 g/dL (31-37) Red Cell Distribution Width 15.0 % (11.5-14.5) Platelet Count 211 x10^3/uL (140-400) Neutrophils (%) (Auto) 79 % (31-73) Lymphocytes (%) (Auto) 11 % (24-48) Monocytes (%) (Auto) 9 % (0-9) Eosinophils (%) (Auto) 0 % (0-3) Basophils (%) (Auto) 0 % (0-3) Neutrophils # (Auto) 14.8 x10^3/uL (1.8-7.7) Lymphocytes # (Auto) 2.1 x10^3/uL (1.0-4.8) Monocytes # (Auto) 1.6 x10^3/uL (0.0-1.1) Eosinophils # (Auto) 0.1 x10^3/uL (0.0-0.7) Basophils # (Auto) 0.1 x10^3/uL (0.0-0.2) Sodium Level 140 mmol/L (136-145) Potassium Level 4.4 mmol/L (3.5-5.1) Chloride Level 109 mmol/L (98-107) Carbon Dioxide Level 20 mmol/L (21-32) Anion Gap 11 (6-14) Blood Urea Nitrogen 42 mg/dL (8-26) Creatinine 1.3 mg/dL (0.7-1.3) Estimated GFR (Cockcroft-Gault) 54.3 Glucose Level 96 mg/dL (70-99) Calcium Level 7.3 mg/dL (8.5-10.1) Total Bilirubin 0.8 mg/dL (0.2-1.0) Direct Bilirubin 0.5 mg/dL (0.0-0.2) Aspartate Amino Transf (AST/SGOT) 3121 U/L (15-37) Alanine Aminotransferase (ALT/SGPT) 2736 U/L (16-63) Alkaline Phosphatase 178 U/L (46-116) Total Protein 5.1 g/dL (6.4-8.2) Albumin 1.9 g/dL (3.4-5.0) Prothrombin Time 21.9 SEC (11.7-14.0) Prothromb Time International Ratio 1.9 (0.8-1.1) Images Images US with gallbladder wall thickening, pericholecystic fluid and hepatomegaly Assessment/Plan Assessment/Plan Elevated LFTs LFTs and history and clinical picture most c/w hepatic shock related to sepsis. Low suspicion of biliary disease as source. In addition, would favor against cholecystectomy or cholecystostomy tube placement as unlikely to aid care, and increased risk of bleeding secondary to hepatic dysfunction. D/w pt and pt's supportive family. Thanks for consult! JUDY HURTADO MD Dec 27, 2020 14:41
[2020-12-27] MEDS: IV NORMAL SALINE 1000ML BAG 1,000 ML IV SCH ×3 (17:21→23:25)
[2020-12-27] MEDS ORDERED: HEPARIN for IV BOLUS 10,000 UNIT/10 ML VIAL. IV PRN (18:30)
--- NOTE | 2020-12-27 20:00 | NUR ---
[id number] Status quo- low dose levo continues to maintain MAP .61, Pickyeater w less than stellar appetite. Refused BKFST,assist feed by family for noon meal w refusal of joce meal at time of service. Sleeping at long intervals w/o physical c/o. Numerous blankets for comfort/warm towel to head requested and given,. Lengthy communication with daughter who is the DPOA. Earlier conversation between she and Dr Galindo ALVARADO.Dr Lobato in. Nixed surgery . Continue w POC. Note ,difficulty w UFH results communication w/o answer. repeat UFH noted . Weight change calculations w check per second RN /accuracy.Bolus followed by increase rate +2 from15 units to 17 units/kg/H
[2020-12-28] VITALS (10 sets, daily range): BP systolic 86–127; BP diastolic 51–71
[2020-12-28] MEDS: PIPERACILLIN/TAZOBACTAM 2.25 GM in IV NORMAL SALINE 50ML 50 ML IV SCH ×2 (00:31→05:58)
[2020-12-28] MEDS: HEPARIN for IV BOLUS 10,000 UNIT/10 ML VIAL. IV PRN (01:05)
[2020-12-28] MEDS: HEPARIN 25,000UTS/250ML PREMIX 250 ML IV PRN (01:06)
[2020-12-28] MEDS: DIGOXIN IV 500 MCG/2 ML AMPUL. IV PRN ×3 (01:26→06:06)
[2020-12-28] MEDS: fentaNYL PF VIAL 100 MCG/2 ML VIAL IVP PRN (07:11)
[2020-12-28] MEDS ORDERED: AMIODARONE 150 MG in IV DEXTROSE 5% 100ML 100 ML IV ONE (07:15)
--- NOTE | 2020-12-28 07:26 | PDOC ---
Infectious Disease Note Subjective: Subjective Patient says feels better Has some nausea and abdominal discomfort No vomiting Afebrile Remains on low-grade pressors Discussed with nursing staff Vital Signs: Vital Signs Vital Signs Date Time Temp Pulse Resp B/P (MAP) Pulse Ox O2 Delivery O2 Flow Rate FiO2 12/28/20 07:12 123 95/63 12/28/20 07:11 34 97 Nasal Cannula 2.0 12/28/20 04:00 98.8 98.8 Physical Exam: PHYSICAL EXAM GENERAL: Sleepy, arousable, appears comfortable, HEENT: Atraumatic, normocephalic. Mucous membranes moist, pink. NECK: Supple. Right IJ in place. Right IJ clean. HEART: S1, S2. No murmurs. ABDOMEN: Soft, nontender, nondistended. GENITOURINARY: Forde in place. EXTREMITIES: Pedal edema, no cyanosis. DERMATOLOGIC: Warm, dry, no generalized rash. NEUROLOGIC: Sleepy, arousable, confusion, which is baseline. PSYCHIATRIC: Calm and cooperative. MUSCULOSKELETAL: Changes suggestive of DJD. Medications: Inpatient Meds: Medications reviewed. Labs: Lab Laboratory Tests Test 12/27/20 09:30 12/27/20 17:02 12/28/20 00:30 Prothrombin Time 21.9 SEC (11.7-14.0) Prothromb Time International Ratio 1.9 (0.8-1.1) Heparin Anti-Xa Act, Unfractionated 0.14 IU/mL (0.30-0.70) 0.24 IU/mL (0.30-0.70) Objective: Assessment: 1. Sepsis. 2. Urinary tract infection at [facility] with chronic indwelling Forde.Forde changed at [facility] per report 3. Urinary retention with chronic indwelling Forde.. 4. Leukocytosis and lactic acidosis. 5. deep venous thrombosis with pulmonary embolism. IVC on ultrasound 6. Acute kidney injury. 7. Alzheimer's advanced. 8. Non-ST elevation myocardial infarction. 9. Abnormal LFTs.likely shock liver 10. Coronary artery disease. 11. Generalized debility. 12. Hematuria. 13. History of recurrent UTIs Plan: Plan of Care 1. Continue Zosyn. 2. Continue Zyvox. 3. Follow up on urine cultures from [facility]. Blood cultures remain negative 4. Follow up labs . 5. Maintain aspiration precaution. 6. Continue supportive care. 7. Abdominal ultrasound reviewed 8. Gen surgery in put noted 9. Family is deciding on final goals of treatment Prognosis very poor Discussed with daughter and nursing staff at bedside DEXTER MORALES MD Dec 28, 2020 07:26
--- NOTE | 2020-12-28 07:34 | PDOC ---
PULMONARY PROGRESS NOTES DATE: 12/28/20 TIME: 07:32 Subjective 02 2 lpm, in afib w rvr has cp on low dose levo Vitals Vital Signs Date Time Temp Pulse Resp B/P (MAP) Pulse Ox O2 Delivery O2 Flow Rate FiO2 12/28/20 07:26 98.1 110 32 95/63 (74) 95 Nasal Cannula 2.0 98.1 ROS: No Nausea General: Alert, No acute distress HEENT: Other (nc at perrl poor dentition ) Lungs: Crackles Cardiovascular: Other (irreg irreg tachy) Abdomen: Soft Neuro Exam: Alert Skin: Warm Labs Laboratory Tests Test 12/26/20 10:00 12/26/20 12:50 12/26/20 18:30 12/27/20 01:45 White Blood Count 19.2 x10^3/uL (4.0-11.0) Red Blood Count 3.51 x10^6/uL (4.30-5.70) Hemoglobin 8.8 g/dL (13.0-17.5) Hematocrit 27.6 % (39.0-53.0) Mean Corpuscular Volume 79 fL (79-100) Mean Corpuscular Hemoglobin 25 pg (25-35) Mean Corpuscular Hemoglobin Concent 32 g/dL (31-37) Red Cell Distribution Width 15.0 % (11.5-14.5) Platelet Count 229 x10^3/uL (140-400) Sodium Level 138 mmol/L (136-145) Potassium Level 4.9 mmol/L (3.5-5.1) Chloride Level 108 mmol/L (98-107) Carbon Dioxide Level 17 mmol/L (21-32) Anion Gap 13 (6-14) Blood Urea Nitrogen 56 mg/dL (8-26) Creatinine 1.6 mg/dL (0.7-1.3) Estimated GFR (Cockcroft-Gault) 42.7 BUN/Creatinine Ratio 35 (6-20) Glucose Level 120 mg/dL (70-99) Calcium Level 7.4 mg/dL (8.5-10.1) Magnesium Level 2.2 mg/dL (1.8-2.4) Total Bilirubin 0.8 mg/dL (0.2-1.0) Aspartate Amino Transf (AST/SGOT) 3133 U/L (15-37) Alanine Aminotransferase (ALT/SGPT) 2456 U/L (16-63) Alkaline Phosphatase 171 U/L (46-116) Troponin I Quantitative 0.535 ng/mL (0.000-0.055) Total Protein 5.8 g/dL (6.4-8.2) Albumin 2.0 g/dL (3.4-5.0) Albumin/Globulin Ratio 0.5 (1.0-1.7) Triglycerides Level 47 mg/dL (0-150) Cholesterol Level 65 mg/dL (0-200) LDL Cholesterol, Calculated 27 mg/dL (0-100) VLDL Cholesterol, Calculated 9 mg/dL (0-40) Non-HDL Cholesterol Calculated 36 mg/dL (0-129) HDL Cholesterol 29 mg/dL (40-60) Cholesterol/HDL Ratio 2.2 Prothrombin Time 21.2 SEC (11.7-14.0) Prothromb Time International Ratio 1.9 (0.8-1.1) Heparin Anti-Xa Act, Unfractionated < 0.10 IU/mL (0.30-0.70) < 0.10 IU/mL (0.30-0.70) < 0.10 IU/mL (0.30-0.70) Test 12/27/20 05:45 12/27/20 09:30 12/27/20 17:02 12/28/20 00:30 White Blood Count 18.7 x10^3/uL (4.0-11.0) Red Blood Count 3.19 x10^6/uL (4.30-5.70) Hemoglobin 8.1 g/dL (13.0-17.5) Hematocrit 25.2 % (39.0-53.0) Mean Corpuscular Volume 79 fL (79-100) Mean Corpuscular Hemoglobin 25 pg (25-35) Mean Corpuscular Hemoglobin Concent 32 g/dL (31-37) Red Cell Distribution Width 15.0 % (11.5-14.5) Platelet Count 211 x10^3/uL (140-400) Neutrophils (%) (Auto) 79 % (31-73) Lymphocytes (%) (Auto) 11 % (24-48) Monocytes (%) (Auto) 9 % (0-9) Eosinophils (%) (Auto) 0 % (0-3) Basophils (%) (Auto) 0 % (0-3) Neutrophils # (Auto) 14.8 x10^3/uL (1.8-7.7) Lymphocytes # (Auto) 2.1 x10^3/uL (1.0-4.8) Monocytes # (Auto) 1.6 x10^3/uL (0.0-1.1) Eosinophils # (Auto) 0.1 x10^3/uL (0.0-0.7) Basophils # (Auto) 0.1 x10^3/uL (0.0-0.2) Sodium Level 140 mmol/L (136-145) Potassium Level 4.4 mmol/L (3.5-5.1) Chloride Level 109 mmol/L (98-107) Carbon Dioxide Level 20 mmol/L (21-32) Anion Gap 11 (6-14) Blood Urea Nitrogen 42 mg/dL (8-26) Creatinine 1.3 mg/dL (0.7-1.3) Estimated GFR (Cockcroft-Gault) 54.3 Glucose Level 96 mg/dL (70-99) Calcium Level 7.3 mg/dL (8.5-10.1) Total Bilirubin 0.8 mg/dL (0.2-1.0) Direct Bilirubin 0.5 mg/dL (0.0-0.2) Aspartate Amino Transf (AST/SGOT) 3121 U/L (15-37) Alanine Aminotransferase (ALT/SGPT) 2736 U/L (16-63) Alkaline Phosphatase 178 U/L (46-116) Total Protein 5.1 g/dL (6.4-8.2) Albumin 1.9 g/dL (3.4-5.0) Prothrombin Time 21.9 SEC (11.7-14.0) Prothromb Time International Ratio 1.9 (0.8-1.1) Heparin Anti-Xa Act, Unfractionated 0.14 IU/mL (0.30-0.70) 0.24 IU/mL (0.30-0.70) Laboratory Tests Test 12/27/20 09:30 12/27/20 17:02 12/28/20 00:30 Prothrombin Time 21.9 SEC (11.7-14.0) Prothromb Time International Ratio 1.9 (0.8-1.1) Heparin Anti-Xa Act, Unfractionated 0.14 IU/mL (0.30-0.70) 0.24 IU/mL (0.30-0.70) Medications Active Scripts Medications Dose Route/Sig Max Daily Dose Days Date Category Namenda (Memantine Hcl) 10 Mg Tablet 10 Mg PO DAILY 12/26/20 Reported Trazodone Hcl 50 Mg Tablet 1 Tab PO QHS 12/26/20 Reported Pantoprazole Sodium (Pantoprazole Sodium) 40 Mg Tablet.dr 40 Mg PO DAILYAC 12/26/20 Reported Cefuroxime (Cefuroxime Axetil) 250 Mg Tablet 250 Mg PO BID 12/26/20 Reported Finasteride 5 Mg Tablet 5 Mg PO DAILY 12/26/20 Reported Donepezil Hcl 10 Mg Tablet 1 Tab PO HS 12/26/20 Reported Atorvastatin Calcium 20 Mg Tablet 1 Tab PO DAILY 12/26/20 Reported Children's Aspirin (Aspirin) 81 Mg Tab.chew 1 Tab PO DAILY 30 12/26/20 Reported Impression . IMPRESSION: 1. Acute hypoxic respiratory failure secondary to septic shock and suspected acute pulmonary embolism. 2. Shock. Likely contributed by sepsis. The patient has chronic Forde catheter and has a history of recurrent urinary tract infection. Another contributing factor could be pulmonary embolism but clinically thought to be less likely. 3. Bilateral lower extremity deep vein thrombosis. Echo reported as RV dilatation. Likely has pulmonary embolism as well. s/p ivc filter years ago details not known Risk factors being a mobilization. 4. Chronic Forde catheter and recurrent urinary tract infections, now with severe urinary tract infection and sepsis. 5. Acute kidney injury related to sepsis. 6. No significant tobacco history. 7. Leukocytosis secondary to urinary tract infection. 8. Lactic acidosis secondary to sepsis. 9. Mildly increased troponin, likely secondary to RV dysfunction from pulmonary embolism. 10. elevated lfts ? shock liver Plan . RECOMMENDATIONS: 1. 02 titration to keep sat 92% on nc 2 lpm 2. amio started for afib w rvr per cardiology 3. Continue to monitor his blood pressure closely. Levophed to keep map 65. 4. IV fluids per protocol for sepsis. 5. Monitor renal function. 6. V/Q scan when able. Cannot do CTA chest unless JULY resolve. 7. The patient will require a minimum of 6 months of anticoagulation, probably lifelong since he is wheelchair bound and will always at future risk for thromboembolic disease. 8. Monitor white cell count. 9. antibiotic, per id 9. Discussed with both the daughters RN and RT STEPHANIE JONES MD Dec 28, 2020 07:34
[2020-12-28 08:26] LABS: BASO # 0.1 x10^3/uL (0.0-0.2); BASO % 1 % (0-3); EOS % 0 % (0-3); HEMOGLOBIN 8.7 g/dL (13.0-17.5); LYMPH % 8 % (24-48); MEAN CORPUSCULAR HEMOGLOBIN 25 pg (25-35); MEAN CORPUSCULAR HGB CONC 31 g/dL (31-37); MEAN CORPUSCULAR VOLUME 81 fL (79-100); MONO # 2.1 x10^3/uL (0.0-1.1); MONO % 9 % (0-9); NEUT # 19.7 x10^3/uL (1.8-7.7); NEUT % 82 % (31-73); PLATELET COUNT 165 x10^3/uL (140-400); RED BLOOD COUNT 3.46 x10^6/uL (4.30-5.70); RED CELL DISTRIBUTION WIDTH 15.3 % (11.5-14.5); WHITE BLOOD COUNT 23.9 x10^3/uL (4.0-11.0)
[2020-12-28 08:38] LABS: ALBUMIN 1.9 g/dL (3.4-5.0); ALBUMIN/GLOBULIN RATIO 0.5 (1.0-1.7); CALCIUM 7.3 mg/dL (8.5-10.1); CREATININE 1.5 mg/dL (0.7-1.3); POTASSIUM 4.9 mmol/L (3.5-5.1); TOTAL BILIRUBIN 1.3 mg/dL (0.2-1.0); TOTAL PROTEIN 5.9 g/dL (6.4-8.2)
[2020-12-28] MEDS ORDERED: LACTOBACILLUS RHAMNOSUS GG 1 CAPSULE. PO SCH (09:00)
[2020-12-28] MEDS ORDERED: MORPHINE SULFATE 2 MG/ML INJ. IV PRN ×2 (09:15→09:45)
[2020-12-28] MEDS ORDERED: MORPHINE SULFATE 4 MG/ML INJ. IVP PRN (10:00)
--- NOTE | 2020-12-28 11:21 | NUR ---
Patient's daughter at bedside. This RN witnessed patient telling daughter that he was ready to see their mom. He did not want to do this anymore. Patient O2 decreased, non rebreather was placed, RR >60/min, this RN call patient's other daughter,CARLA and informed her of her father's status and requests. She agreed to his requests. Patient was given one dose of pain medication, patient's status continued to deteriorate until his TOD [id number]. Elmer was called, patient is not a candidate, Dr. Medley, Dr. Morrissey, Dr. Lobato, Dr. Zepeda, Dr. Chaparro, and Nursing Photography Instructor were informed. Family was at bedside, tearful, calm and supporting one another.
== END 2020-12-28 13:22 | DRG 871 ==
LOC: 1 WEST ICU 23:48
PROVIDERS: ADMIT Internal Medicine; ATTEND Internal Medicine
DX: A41.9 Sepsis, unspecified organism (principal); E43 Unspecified severe protein-calorie malnutrition; I21.4 Non-ST elevation (NSTEMI) myocardial infarction; J96.01 Acute respiratory failure with hypoxia; N17.0 Acute kidney failure with tubular necrosis; R65.21 Severe sepsis with septic shock; I82.403 Acute embolism and thrombosis of unspecified deep veins of lower extremity, bilateral; N13.8 Other obstructive and reflux uropathy; N39.0 Urinary tract infection, site not specified; E78.5 Hyperlipidemia, unspecified; F02.80 Dementia in other diseases classified elsewhere, unspecified severity, without behavioral disturbance, psychotic disturbance, mood disturbance, and anxiety; G30.9 Alzheimer's disease, unspecified; I11.9 Hypertensive heart disease without heart failure; I25.10 Atherosclerotic heart disease of native coronary artery without angina pectoris; I48.91 Unspecified atrial fibrillation; K21.9 Gastro-esophageal reflux disease without esophagitis; N40.1 Benign prostatic hyperplasia with lower urinary tract symptoms; Z66 Do not resuscitate; Z87.440 Personal history of urinary (tract) infections; Z99.3 Dependence on wheelchair; M19.90 Unspecified osteoarthritis, unspecified site; Z68.23 Body mass index [BMI] 23.0-23.9, adult
CPT/HCPCS: 36415; 76705; 80048; 80053; 80061; 80076; 81001; 82607; 83540; 83550; 83605; 83735; 84484; 85007; 85025; 85027; 85520; 85610; 86705; 86709; 86803; 87086; 87340; 93005; C9113; J0282; J1160; J1644; J2020; J2270; J2405; J2543; J3010; J3490; J7030; J7060; G0378